=== PATIENT | male | born 1970 | race Caucasian/White ===

== ENCOUNTER 2020-06-23 19:28 | Emergency (ER) | payer MEDICARE, MEDICAID, SELFPAY ==
[2020-06-23 19:37] VITALS: BP 137/88; PULSE 115; RESP 18; TEMP 37.1; O2SAT 97; BMI 30.5
--- NOTE | 2020-06-23 20:00 | W.ED.UPPEXIN ---
HPI - Extremity Injury (Upper) General: Chief Complaint: Trauma Stated Complaint: crushed finger Time Seen by Provider: 06/23/20 19:51 Source: patient Mode of arrival: ambulatory Limitations: no limitations History of Present Illness: HPI narrative: Patient is a 50-year-old male who presents to ED today with a complaint of pain and swelling to his left index finger. Patient tells me a few days ago he was working on a car motor when the motor came down and landed onto his finger. He did not note any abrasions or lacerations or nail damage. He states following that the finger became swollen and red and warm to the touch thus prompting evaluation. He has not been running fevers. MD complaint: injury to: left and finger Onset (ago): day(s) Other injuries: none Place: home Severity: moderate Relieving factors: none Exacerbating factors: none Context: direct blow and crush Review of Systems Const: Denies: fever(s), chills or body aches Card: Denies: chest pain Resp: Denies: dyspnea GI: Denies: nausea or vomiting Musc: Reports: extremity pain (L index finger) and extremity swelling (L index finger) Skin/Breast: Reports: erythema (L index finger) Neuro: Denies: numbness in extremities or sensory changes Physical Exam Const: COMMON NORMALS: no acute distress, patient oriented x3, no limitations and alert GENERAL APPEARANCE: cooperative ORIENTATION/CONSCIOUSNESS: Yes awake, Yes oriented to person, Yes oriented to place and Yes oriented to time Resp: COMMON NORMALS: normal respiratory effort and clear to auscultation bilaterally AUSCULTATION: clear to auscultation bilaterally Cardio: COMMON NORMALS: regular rhythm RATE: tachycardic (mild) RHYTHM: regular rhythm Extremity: NARRATIVE EXTREMITY EXAM: pt has swelling to the distal 2/3 of his L index finger; the dorsum of the finger around the middle phalanx is erythematous and warm; there is no nail damage/no subungual hematoma; there is no lacerations or abrasions noted Neuro: COMMON NORMALS: patient oriented x3, moves all extremities, no focal motor deficits and no sensory deficits noted SENSORIUM/ORIENTATION: Yes alert, Yes oriented to person, Yes oriented to place and Yes oriented to time Skin: NARRATIVE SKIN EXAM: see extremity assessment Course Vital Signs: Vital signs: Vital Signs Temperature 98.1 F 06/23/20 21:41 Pulse Rate 105 H 06/23/20 21:41 Respiratory Rate 16 06/23/20 21:41 Blood Pressure 148/94 06/23/20 21:41 Pulse Oximetry 97 06/23/20 21:41 MDM - Extremity Injury (Upper) MDM Narrative: Medical decision making narrative: Patient has no bony injury. Finger does appear infected-most likely some microtrauma from the crush injury. No infectious tenosynovitis. He was given 1g IM ancef here. Will DC with pain meds and abx. Strict return to ED precautions given if this doesn't improve or worsens. Imaging Data^: XR L finger: Radiologist's impression: [address] [address]SFvu ReportSigned Patient: Ike Herrera #: [id number]: 1970Acct#:[id number]/Sex: 50 / MADM Date: 06/23/20Loc: ERRoom/Bed:Attending Dr: Ordering Provider/Ordering MD: Loren Diallo Date of Service: 06/23/20 Procedure(s): XR finger LT min 2V [id number] Accession Number(s): [id number] Report Number: [id number] PROCEDURE INFORMATION: Exam: XR Left Finger(s) Exam date and time: 06/23/2020 8:24 PM Age: 50 years old Clinical indication: Injury or trauma; Crushing; Left; Patient HX: Crush injury L index finger; Additional info: Trauma; Index TECHNIQUE: Imaging protocol: XR Left fingers. Views: Minimum 2 views. COMPARISON: No relevant prior studies available. FINDINGS: Bones/joints: Normal. Soft tissues: There is edema and/or hematoma in the soft tissues surrounding the 2nd digit. XR/XR finger LT min 2V [id number] IMPRESSION: There is edema and/or hematoma in the soft tissues surrounding the 2nd digit. Dictated By:Cathy Hercules MDSigned By:Cathy Hercules MDSigned Date/Time:06/23/20D/ 49 Discharge Plan Discharge Patient Disposition: Home Clinical Impression: Crushing injury of index finger, Cellulitis of left index finger Condition: Stable Prescriptions: New tramadol 50 mg tablet 50 mg PO Q6H PRN (Reason: pain) Qty: 14 RF: 0 cephalexin 500 mg capsule 500 mg PO Q6H 7 Days Qty: 28 RF: 0 Discharge Orders: Discharge ED (Routine); Ordered 06/23/20 Ordered By: Loren Diallo Referrals: Ned Nguyen, ACCOUNT SERVICES ANALYST-C [Primary Care Provider] - Activity Restrictions/Additional Instructions: Fill your antibiotics and begin taking them immediately. You need to return to the emergency department if finger continues over the weekend. You also need to return if finger continues to worsen past 48 hours of antibiotic use. Otherwise you may follow up with primary care. Coding Level of Care Code ED Dub Room Engineer for Piedad Gonzalez
[2020-06-23 20:28] VITALS: BP 154/103; PULSE 112; RESP 18; TEMP 37.6; O2SAT 96
--- NOTE | 2020-06-23 20:32 | PC.NURSE ---
Pt crushed left finger on night while changing brakes on a car. Left index finger is swollen, red and pt states it is throbbing and very painful. Rates pain as 10 on 1-10 scale.
[2020-06-23] MEDS: ceFAZolin 1,000 mg SDV 1000 MG IM (21:25)
[2020-06-23 21:28] VITALS: RESP 16
[2020-06-23] MEDS: morphine 4 mg/mL SDV 1 mL IM (21:28)
[2020-06-23 21:32] VITALS: BP 148/94; PULSE 102; RESP 18; TEMP 37.1; O2SAT 97
[2020-06-23 21:41] VITALS: BP 148/94; PULSE 105; RESP 16; TEMP 36.7; O2SAT 97
--- NOTE | 2020-06-23 21:57 | PC.NURSE ---
Pt states pain is improving. Now rates pain 7 on 1-10 scale. now preparing for discharge.
== END 2020-06-23 22:04 | disposition home or self-care (01) ==
PROVIDERS: Emergency Provider Physician Assistant; PCP Nurse Practitioner
DX: S67.191A Crushing injury of left index finger, initial encounter (principal); L03.012 Cellulitis of left finger; W20.8XXA Other cause of strike by thrown, projected or falling object, initial encounter
CPT/HCPCS: 73140; 96372; 99283; J0690; J2270

== ENCOUNTER → 2020-09-24 09:37 | Outpatient (BNVA) | payer MEDICARE, MEDICAID, SELFPAY | PROVIDERS: PCP Nurse Practitioner; Referring Provider Nurse Practitioner Family; Visit Provider Specialist | DX: M25.511 Pain in right shoulder (principal); M25.512 Pain in left shoulder; G89.29 Other chronic pain; Z98.890 Other specified postprocedural states | CPT/HCPCS: 73030 ==

== ENCOUNTER 2021-03-03 21:58 | Emergency (ER) | payer MEDICARE, MEDICAID, SELFPAY ==
[2021-03-03 22:07] VITALS: BP 149/93; PULSE 122; RESP 24; TEMP 37.9; O2SAT 96; BMI 30.5
--- NOTE | 2021-03-03 23:03 | ECG_ITS ---
[facility] Test Date: 2021-03-03 Pat Name: Ike Herrera Department: Room: Gender: Male Event Promotions Coordinator: : 1970 Requested By: Andres Merchant Order Number: [id number] Chandni MD: Lupe Burns M.D. Measurements Intervals [place] Rate: 118 P: 59 DC: 142 QRS: 15 QRSD: 104 T: 56 QT: 307 QTc: 430 Interpretive Statements SINUS TACHYCARDIA ABNORMAL RHYTHM ECG Compared to ECG 02/24/2017 13:59:00 Sinus rhythm no longer present Electronically Signed On 03-05-2021 5:04:55 HOSPITALITY AMBASSADOR by Lupe Burns M.D. [email or web address] county memorial [id number]
--- NOTE | 2021-03-03 23:03 | CTR_ITS ---
PROCEDURE INFORMATION: Exam: CTA Chest With Contrast Exam date and time: 03/03/2021 11:03 PM Age: 50 years old Clinical indication: Injury or trauma; Fall; Dyspnea; Blunt trauma (contusions or hematomas); Injury details: PT fell out of truck bed 3 days ago onto right side. Bruising to right side of torso SOB; Additional info: Fall chest and R flank pain, SOB TECHNIQUE: Imaging protocol: Computed tomographic angiography of the chest with contrast. 3D rendering (Not supervised by radiologist): MIP and/or 3D reconstructed images were created by the technologist. Radiation optimization: All CT scans at this facility use at least one of these dose optimization techniques: automated exposure control; mA and/or kV adjustment per patient size (includes targeted exams where dose is matched to clinical indication); or iterative reconstruction. Contrast material: OMNI 350; Contrast volume: 95 ml; Contrast route: INTRAVENOUS (IV); COMPARISON: CR Chest 1 [place] [id number] 11/14/2018 10:41 PM RADIATION DOSE METRICS: Total DLP (mGy-cm): 2987.54 FINDINGS: Pulmonary arteries: Normal. No pulmonary emboli. Aorta: Unremarkable. No aortic aneurysm. No aortic dissection. Lungs: Unremarkable. No consolidation. No masses. Pleural spaces: Unremarkable. No pneumothorax. No pleural effusion. Heart: Unremarkable. No cardiomegaly. No pericardial effusion. Lymph nodes: Unremarkable. No enlarged lymph nodes. Bones/joints: Severe cervicothoracic dextroscoliosis and thoracic levoscoliosis which may be developmental with multiple areas of rib anomalies and developmental fusions. Anterior dislocation of the right total shoulder replacement. Axial series 4, image 23. Severe lower cervical facet degenerative change. No obvious right rib fractures. Soft tissues: 5.5 x 4.5 x 2.2 cm hematoma within the right pectoralis minor muscle, axial series 4, image 149. Two smaller confluent molar posterior hematomas within the right pectoralis minor muscle. PROCEDURE INFORMATION: Exam: CT Abdomen And Pelvis With Contrast Exam date and time: 03/03/2021 11:03 PM Age: 50 years old Clinical indication: Injury or trauma; Fall; Dyspnea; Blunt trauma (contusions or hematomas); Injury details: PT fell out of truck bed 3 days ago onto right side. Bruising to right side of torso SOB; Additional info: Fall chest and R flank pain, SOB TECHNIQUE: Imaging protocol: Computed tomography of the abdomen and pelvis with contrast. Radiation optimization: All CT scans at this facility use at least one of these dose optimization techniques: automated exposure control; mA and/or kV adjustment per patient size (includes targeted exams where dose is matched to clinical indication); or iterative reconstruction. Contrast material: OMNI 350; Contrast volume: 95 ml; Contrast route: INTRAVENOUS (IV); COMPARISON: CR Chest 1 [place] [id number] 11/14/2018 10:41 PM RADIATION DOSE METRICS: Total DLP (mGy-cm): 2987.54 FINDINGS: Liver: Normal. No mass. Gallbladder and bile ducts: Normal. No calcified stones. No ductal dilation. Pancreas: Normal. No ductal dilation. Spleen: Normal. No splenomegaly. Adrenal glands: Normal. No mass. Kidneys and ureters: There is a right ureteral jet. Stomach and bowel: Unremarkable. No obstruction. No mucosal thickening. Appendix: No evidence of appendicitis. Intraperitoneal space: Unremarkable. No free air. No significant fluid collection. Vasculature: Calcification of the abdominal aorta and/or iliac arteries consistent with atherosclerotic vessel disease. Lymph nodes: Unremarkable. No enlarged lymph nodes. Urinary bladder: Unremarkable as visualized. Reproductive: Unremarkable as visualized. Bones/joints: Unremarkable. No acute fracture. Soft tissues: Unremarkable. CT/CT angio chest w abd pel w con IMPRESSION: 1. Severe cervicothoracic dextroscoliosis and thoracic levoscoliosis which may be developmental with multiple areas of rib anomalies and developmental fusions. 2. Anterior dislocation of the right total shoulder replacement. Axial series 4, image 23. 3. 5.5 x 4.5 x 2.2 cm hematoma within the right pectoralis minor muscle, axial series 4, image 149. 4. Two smaller confluent molar posterior hematomas within the right pectoralis minor muscle. 5. No obvious right rib fractures. IMPRESSION: No acute findings.
--- NOTE | 2021-03-03 23:03 | CTR_ITS ---
PROCEDURE INFORMATION: Exam: CT Cervical Spine Without Contrast Exam date and time: 03/03/2021 11:03 PM Age: 50 years old Clinical indication: Pain and injury or trauma; Fall; Blunt trauma; Neck pain; Injury date: 3 days ago; Injury details: Patient fell out of truck bed onto right side; Prior surgery; Surgery date: 6+ months; Surgery type: Right humerus; Additional info: Fall neck pain TECHNIQUE: Imaging protocol: Computed tomography images of the cervical spine without contrast. Radiation optimization: All CT scans at this facility use at least one of these dose optimization techniques: automated exposure control; mA and/or kV adjustment per patient size (includes targeted exams where dose is matched to clinical indication); or iterative reconstruction. COMPARISON: MRI Cervical Spine w/o* [id number] 05/12/2014 2:13 PM RADIATION DOSE METRICS: Total DLP (mGy-cm): 1280.25 FINDINGS: Bones/joints: Total right shoulder replacement. Severe multilevel spine degenerative changes including degenerative disc disease, spondylosis and facet degenerative changes. Levoscoliosis. Discs/Spinal canal/Neural foramina: Multilevel bilateral foraminal stenosis. Moderate to severe central spinal stenosis at C4-C5. Lungs: Lung apices are normal. Soft tissues: Dislocation/subluxation of the right total shoulder replacement noted on the scalp film. CT/CT cervical spin wo con* [id number] IMPRESSION: 1. Total right shoulder replacement noted on cold food packer film 2. Dislocation/subluxation of the right total shoulder replacement noted on the cold food packer film. 3. Moderate to severe central spinal stenosis at C4-C5. 4. No acute C-spine findings.
[2021-03-03 23:10] VITALS: O2SAT 96
[2021-03-03 23:16] VITALS: RESP 25; O2SAT 95
[2021-03-03] MEDS: morphine 4 mg/mL SDV 1 mL IVP (23:16)
[2021-03-03 23:18] LABS: Basophils % 0.1 %; Eosinophils # 0.1 10^3/uL (0.0-0.8); Eosinophils % 0.8 %; Hematocrit 33.9 % (42.0-52.0); Hemoglobin 11.1 g/dL (11.7-16.6); Lymphocytes # 2.3 10^3/uL (0.8-4.8); Lymphocytes % 28.4 %; Mean Corpuscular HGB Conc 32.7 g/dL (30.0-36.0); Mean Corpuscular Volume 85.6 fl (80-94); Mean Platelet Volume 10.3 fL (7.4-10.4); Monocytes # 0.6 10^3/uL (0.2-0.9); Monocytes % 7.7 %; Neutrophils # 4.96 10^3/uL (1.8-7.7); Neutrophils % 62.4 %; Nucleated Red Blood Cells % 0 %; Platelet Count 316 10^3/cmm (130-400); Red Blood Count 3.96 10^6/uL (4.1-5.3); Red Cell Distribution Width 14.2 % (12.1-15.1)
[2021-03-03] MEDS: ondansetron 2 mg/ML SDV 2 mL 4 MG IVP (23:23)
[2021-03-03 23:24] VITALS: PULSE 113; RESP 25; O2SAT 95
--- NOTE | 2021-03-03 23:30 | XRR_ITS ---
PROCEDURE INFORMATION: Exam: XR Right Humerus Exam date and time: 03/03/2021 11:30 PM Age: 50 years old Clinical indication: Pain; Upper arm; Right; Prior surgery; Surgery date: 6+ months; Surgery type: RT. Shoulder; Additional info: Fall arm pain TECHNIQUE: Imaging protocol: XR Right humerus. Views: 2 or more views. COMPARISON: CT angio chest w abd pel w con 03/03/2021 11:49 PM FINDINGS: Bones/joints: Anterior shoulder dislocation of the total right shoulder replacement noted on today's CT chest. Apparent continued dislocation on plain films today. Soft tissues: Normal. XR/[place] [id number] IMPRESSION: 1. Anterior shoulder dislocation of the total right shoulder replacement noted on today's CT chest. 2. Apparent continued dislocation on plain films today.
--- NOTE | 2021-03-03 23:30 | ED_ITS ---
HPI - COVID General: Chief Complaint: COVID symptoms Stated Complaint: Covid Symptoms\Injury Shoulder Pain Time Seen by Provider: 03/03/21 22:24 Triage information: Has fever, cough or shortness of breath . Exposure to COVID + person last 14 days History of Present Illness: HPI Narrative: 50-year-old male has been taking care of a family member with COVID-19. Also, 3 days ago, he was getting up into his truck, fell off of the side of the truck and landed on his right side. He complains of bruising and pain with shortness of breath to the right side of his chest wall, and arm. He has fever, increasing shortness of breath. No vomiting. He does have cough as well. He complains of neck pain after his fall as well on the right side. He did not hit his head MD complaint: reported COVID exposure and has COVID symptoms Prior covid testing: no COVID 19 common symptoms: positive fever(s), chills, cough, productive cough, dyspnea, fatigue, nasal congestion, nausea and diarrhea; negative vomiting COVID 19 other sytmptoms: positive chest pressure, chest pain and pleuritic pain; negative requiring oxygen Onset (ago): day(s) Severity: moderate Pertinent comorbid conditions: tobacco use/smoking Treatment prior to arrival: none COVID Results: SARS-CoV-2 (PCR) Not detected (NOT DETECT) 03/03/21 23:19 03/03/21 Coronavirus Type 229E (PCR) Not detected (NOT DETECT) 03/03/21 23:19 03/03/21 Review of Systems Const: Reports: fever(s), chills and fatigue ENMT: Reports: nasal congestion Card: Reports: chest pain Resp: Reports: dyspnea and productive cough GI: Reports: nausea and diarrhea; Denies: vomiting PFSH ED PFSH: Surgical History (Updated 03/04/21 @ 01:54 by Andres Burk DO) History of rotator cuff surgery right and left shoulder Family History Father Hypertension Social History Second hand smoke exposure: No Smoking risk assessment/counseling performed?: Yes Alcohol intake: never Desire information about alcohol rehabilitation?: No Counseling given: No Desire information about substance/drug rehabilitation?: No Counseling given: No Caregiver/support person: No Lives independently: Yes Household members: family Housing: House Marital status: Number of children: 3 Highest education level completed: High School Graduate service: No Current occupational status: disabled Pets and animals: No History of recent travel: No Physical Exam Const: GENERAL APPEARANCE: cooperative and ill appearing; not comfortable HENMT: COMMON NORMALS: normocephalic and atraumatic HEAD & SCALP: normocephalic and atraumatic Neck/C-Spine: GENERAL: Yes trachea midline and Yes tender (Right paraspinal musculature) Chest: CHEST: Yes localized rib tenderness with anteroposterior compression, No Sternal flail present and Yes tenderness Breast/axilla inspection: Yes skin changes Resp: COMMON NORMALS: clear to auscultation bilaterally EFFORT & INSPECTION: Yes tachypneic and Yes uses accessory muscles AUSCULTATION: clear to auscultation bilaterally Cardio: COMMON NORMALS: regular rhythm RATE: tachycardic RHYTHM: regular rhythm GI: COMMON NORMALS: Normal to inspection, nondistended, normoactive bowel sounds present and Soft to palpation PALPATION: Yes Soft to palpation Extremity: NARRATIVE EXTREMITY EXAM: Right upper extremity exam shows a shoulder that is tender to the touch. There is an anterior bulge suspicious for possible dislocation or fracture near the arthroplasty site. Skin: NARRATIVE SKIN EXAM: Significant ecchymosis to the right chest wall and flank Procedures Orthopedic Joint Reduction Joint #1: Time Out Performed: Yes Side: right Joint Reduction Location: shoulder Analgesia: procedural sedation Shoulder Technique Used (if applicable): traction/counter-traction and scapula manipulation Post-reduction neuro exam: intact Post-reduction vascular: intact Post Reduction X-Ray Obtained: Yes Post Reduction X-Ray Results: reduced Splint Applied: Yes Patient Tolerated Procedure: well and no complications Procedural Sedation Indication: fracture/dislocation reduction ASA Class: II Preparation: groundwater monitoring technician applied, pulse oximeter, supplemental O2 applied, suction/airway equipment at bedside and IV secured Fentanyl: IV Fentanyl dose (mcg): 10 Ketamine: IV Ketamine dose (mg): 150 Patient Tolerated Procedure: well and no complications Complications: none Course Vital Signs: Vital signs: Vital Signs Temperature 100.3 F H 03/03/21 22:07 Pulse Rate 101 H 03/04/21 01:16 Respiratory Rate 18 03/04/21 02:25 Blood Pressure 159/98 03/04/21 02:25 Pulse Oximetry 98 03/04/21 02:25 MDM - COVID MDM Narrative: Medical decision making narrative: 50-year-old male with multiple complaints. He complains of cough and shortness of breath. He has a temperature of 100.3 here. He has close contact with a COVID-19 positive patient. His PCR was negative here. His chest x-ray was negative for infiltrate. However, his D-dimer was 7, CTA was performed not only for this reason but because the patient had had chest trauma 3 days ago. It is negative for rib fracture. Negative for infiltrate. Negative for PE belly CT is negative as well. It does show a dislocated prosthetic right shoulder. X-ray of the humerus shows this as well. This was reduced with mild difficulty under conscious sedation. Pain is improved as far as that goes. He will follow up with an orthopedic surgeon. He remains highly suspicious for COVID-19 given his other symptoms, and was encouraged to retest. As his test is so far negative, monoclonal antibody infusion was not able to be given. Lab Data: Labs: Lab Results 03/03/21 03/03/21 03/03/21 23:04 23:04 23:04 WBC 8.0 10^3/uL 10^3/ uL (4.0-10.0) RBC 3.96 10^6/uL L 10 ^6/uL (4.1-5.3) Hgb 11.1 g/dL L g/dL (11.7-16.6) Hct 33.9 % L % (42.0-52.0) MCV 85.6 fl fl (80-94) MCH 28.0 pg pg (28.0-34.0) MCHC 32.7 g/dL g/dL (30.0-36.0) RDW 14.2 % % (12.1-15.1) Plt Count 316 10^3/cmm 10^3 /cmm (130-400) MPV 10.3 fL fL (7.4-10.4) Neut % (Auto) 62.4 % % Lymph % (Auto) 28.4 % % [place] % (Auto) 7.7 % % Eos % (Auto) 0.8 % % Baso % (Auto) 0.1 % % Neut # (Auto) 4.96 10^3/uL 10^3 /uL (1.8-7.7) Lymph # (Auto) 2.3 10^3/uL 10^3/ uL (0.8-4.8) [place] # (Auto) 0.6 10^3/uL 10^3/ uL (0.2-0.9) Eos # (Auto) 0.1 10^3/uL 10^3/ uL (0.0-0.8) Baso # (Auto) 0.0 10^3/uL 10^3/ uL (0.0-0.1) Nucleated RBC % (a uto) 0 % % Nucleated RBCs # 0.0 /100WBC /100W BC D-Dimer 7.64 ug/mIFEU H u g/mIFEU (0-0.59) Sodium 134 mmol/L L mmol /L (136-145) Potassium 4.0 mmol/L mmol/L (3.5-5.1) Chloride 98 mmol/L mmol/L (98-107) Carbon Dioxide 25 mmol/L mmol/L (22-29) Anion Gap 15.0 (5-19) BUN 7 mg/dL mg/dL (6-20) Creatinine 0.6 mg/dL L mg/dL (0.7-1.2) GFR Calculation 142.0 mL/min H mL /min (90-130) Glucose 93 mg/dL mg/dL (65-115) Calculated Osmolal ity 276 mOsm/kg L mOs m/kg (285-295) Lactic Acid Calcium 8.0 mg/dL L mg/dL (8.5-10.5) Total Bilirubin 0.3 mg/dL mg/dL (0.15-1.2) AST 36 U/L U/L (0-40) ALT 63 U/L H U/L (0-41) Alkaline Phosphata se 99 IU/L IU/L (40-130) C-Reactive Protein 84.9 mg/L H mg/L (0.0-4.9) NT-Pro-B Natriuret Pep 97 pg/mL pg/mL (0-125) Total Protein 6.8 g/dL g/dL (6.6-8.7) Albumin 3.2 g/dL L g/dL (3.5-5.2) Globulin 3.6 g/dL g/dL (1.3-4.6) Procalcitonin 0.28 ng/mL ng/mL (0-0.5) Coronavirus 229E ( PCR) SARS-CoV-2 (PCR) 03/03/21 03/03/21 23:19 23:19 WBC RBC Hgb Hct MCV MCH MCHC RDW Plt Count MPV Neut % (Auto) Lymph % (Auto) [place] % (Auto) Eos % (Auto) Baso % (Auto) Neut # (Auto) Lymph # (Auto) [place] # (Auto) Eos # (Auto) Baso # (Auto) Nucleated RBC % (a uto) Nucleated RBCs # D-Dimer Sodium Potassium Chloride Carbon Dioxide Anion Gap BUN Creatinine GFR Calculation Glucose Calculated Osmolal ity Lactic Acid 1.1 mmol/L mmol/L (0.5-2.2) Calcium Total Bilirubin AST ALT Alkaline Phosphata se C-Reactive Protein NT-Pro-B Natriuret Pep Total Protein Albumin Globulin Procalcitonin Coronavirus 229E ( PCR) Not detected (NOT DETECT) SARS-CoV-2 (PCR) Not detected (NOT DETECT) COVID Results: SARS-CoV-2 (PCR) Not detected (NOT DETECT) 03/03/21 23:19 03/03/21 Coronavirus Type 229E (PCR) Not detected (NOT DETECT) 03/03/21 23:19 03/03/21 Discharge Plan Discharge Patient Disposition: Home Clinical Impression: History of reverse total replacement of right shoulder joint Dislocation of shoulder region Qualifiers: Encounter type: initial encounter Laterality: right Qualified Code(s): S43.004A - Unspecified dislocation of right shoulder joint, initial encounter Condition: Stable Prescriptions: Continued Percocet 5-325 mg tablet 1 tab PO Q4H PRN (Reason: pain) Qty: 10 RF: 0 Discharge Orders: Discharge ED (Routine); Ordered 03/04/21 Ordered By: Andres Burk Referrals: Ned Nguyen, TUBE DRAWER-C [Primary Care Provider] - 1-3 days Patient Instructions: Shoulder Dislocation (ED), Shoulder Immobilizer (ED) Activity Restrictions/Additional Instructions: Stay in your shoulder immobilizer or a sling until seen by orthopedic surgeon. You will need to see your orthopedic surgeon this coming week. Call them for an appointment. Also, consider getting retested for COVID-19, as your presentation is suspicious though your COVID-19 PCR was negative this morning. Take a full dose aspirin a day until otherwise told. Return for any worsening symptoms such as fever, shortness of breath, worsening pain, vomiting liquids, other concerns. Coding Level of Care Code ED Distribution Collection Operator for Piedad Fwmathew Exam Detailed
[2021-03-03 23:31] LABS: D Dimer 7.64 ug/mIFEU (0-0.59)
[2021-03-03 23:38] LABS: NT Pro B Type Natriuretic Pept 97 pg/mL (0-125); Procalcitonin 0.28 ng/mL (0-0.5)
[2021-03-03 23:49] LABS: Alanine Aminotransferase 63 U/L (0-41); Albumin Level 3.2 g/dL (3.5-5.2); Alkaline Phosphatase 99 IU/L (40-130); Aspartate Amino Transferase 36 U/L (0-40); Blood Urea Nitrogen 7 mg/dL (6-20); C Reactive Protein 84.9 mg/L (0.0-4.9); Carbon Dioxide 25 mmol/L (22-29); Chloride 98 mmol/L (98-107); Globulin 3.6 g/dL (1.3-4.6); Glucose 93 mg/dL (65-115); Osmolality Calculated 276 mOsm/kg (285-295); Sodium 134 mmol/L (136-145); Total Bilirubin 0.3 mg/dL (0.15-1.2); Total Protein 6.8 g/dL (6.6-8.7)
[2021-03-03] MEDS: iohexol 350 mg/mL 100 mL Btl IV (23:50)
[2021-03-03 23:54] VITALS: PULSE 113; RESP 20
[2021-03-04 00:13] LABS: Lactic Sepsis W/Reflex 1.1 mmol/L (0.5-2.2)
[2021-03-04 00:16] VITALS: RESP 25; O2SAT 93
[2021-03-04] MEDS: morphine 4 mg/mL SDV 1 mL IVP (00:16)
--- NOTE | 2021-03-04 00:54 | XRR_ITS ---
PROCEDURE INFORMATION: Exam: XR Right Shoulder Exam date and time: 03/04/2021 12:54 AM Age: 50 years old Clinical indication: Pain; Shoulder; Right; Prior surgery; Surgery date: 6+ months; Additional info: Post reduction TECHNIQUE: Imaging protocol: XR Right shoulder. Views: 2 or more views. COMPARISON: 1. CR (UP EXM, ) 2021-03-04 00:[address] angio chest w abd pel w con 2021-03-03 23:49 3. CR Chest 1 [place] [id number] 2018-11-14 22:41 4. CR Chest 2 views* [id number] 2017-02-24 14:08 FINDINGS: Bones/joints: Shoulder arthroplasty hardware appears intact. Distal clavicle osteotomy. Soft tissues: Normal. XR/XR shoulder RT min 2V* [id number] IMPRESSION: Anatomic alignment following reduction.
[2021-03-04] MEDS: ondansetron 2 mg/ML SDV 2 mL 4 MG IVP (01:15)
[2021-03-04] MEDS: fentaNYL 50 mcg/mL INJ 2mL 100 MCG IVP (01:15)
[2021-03-04 01:16] VITALS: PULSE 101; RESP 26; O2SAT 95
--- NOTE | 2021-03-04 01:34 | PC.NURSE ---
this nurse, torrie colindres- rt and [facility] radiology were present for sedation and shoulder reduction. torrie then helped me placed a shoulder immobilizer.
[2021-03-04 01:45] LABS: Adenovirus Not Detected (NOT DETECT); Chlamydia Pneumoniae Not Detected (NOT DETECT); Coronavirus 229E,HKU1,NL63,OC4 Not Detected (NOT DETECT); Human Metapneumovirus Not Detected (NOT DETECT); Human Rhinovirus/Enterovirus Not Detected (NOT DETECT); Influenza A Not Detected (NOT DETECT); Influenza A H1 Not Detected (NOT DETECT); Influenza A H1-2009 Not Detected (NOT DETECT); Influenza A H3 Not Detected (NOT DETECT); Influenza B Not Detected (NOT DETECT); Mycoplasma Pneumoniae Not Detected (NOT DETECT); Parainfluenza Virus Type 1 Not Detected (NOT DETECT); Parainfluenza Virus Type 2 Not Detected (NOT DETECT); Parainfluenza Virus Type 3 Not Detected (NOT DETECT); Parainfluenza Virus Type 4 Not Detected (NOT DETECT); Respiratory Syncytial Virus A Not Detected (NOT DETECT); Respiratory Syncytial Virus B Not Detected (NOT DETECT); SARS-COV-2 Not Detected (NOT DETECT)
[2021-03-04 02:25] VITALS: BP 159/98; RESP 18; O2SAT 98
--- NOTE | 2021-03-04 07:20 | DCPLANNER ---
physician practice market manager had message to schedule a follow up appointment for patient with ortho. physician practice market manager emailed patients information to Yaz at ortho. Patients information will be printed and reviewed. Clinic will call patient with appointment information.
--- NOTE | 2021-03-06 06:57 | DCPLANNER ---
Addendum entered by Fabiola Andres 03/22/21 15:51: Patient had a follow up appointment scheduled for 03.06.21 with ortho - patient did not attend appointment. Original Note: Patient has a follow up appointment scheduled for Saturday, March 06, 2021 at 1:[address] Ramirez at ortho. Clinic will call patient with appointment information.
== END 2021-03-04 02:28 | disposition home or self-care (01) ==
PROVIDERS: Emergency Provider Emergency Medicine; PCP Nurse Practitioner
DX: T84.028A Dislocation of other internal joint prosthesis, initial encounter (principal); Z96.611 Presence of right artificial shoulder joint; W17.89XA Other fall from one level to another, initial encounter; Z20.822 Contact with and (suspected) exposure to COVID-19
CPT/HCPCS: 23650; 71275; 72125; 73030; 73060; 74177; 80053; 83605; 83880; 84145; 85025; 85378; 86140; 87040; 87635; 93005; 96374; 96375; 96376; 99284; J2270; J2405; J3010; J3490; Q9967

== ENCOUNTER 2021-07-31 20:00 | Emergency (ER) | payer MEDICARE, MEDICAID, SELFPAY ==
[2021-07-31 20:42] VITALS: BP 105/62; PULSE 104; RESP 18; TEMP 38.1; O2SAT 97; BMI 28.1
--- NOTE | 2021-07-31 20:59 | XRR_ITS ---
PROCEDURE INFORMATION: Exam: XR Right Shoulder Exam date and time: 07/31/2021 9:21 PM Age: 51 years old Clinical indication: Pain; Right; Prior surgery; Surgery date: 6+ months; Surgery type: RT. Shoulder; Additional info: Shoulder pain TECHNIQUE: Imaging protocol: XR Right shoulder. Views: 2 or more views. COMPARISON: CR XR shoulder RT min 2V* [id number] 03/04/2021 1:09 AM FINDINGS: Tubes, catheters and devices: There is right shoulder replacement without evidence of fracture or prosthetic loosening. Bones/joints: There is some degenerative spurring from the inferior aspect of the shoulder joint which is increased. Distal osteotomy of the right clavicle again identified. Soft tissues: Normal. XR/XR shoulder RT min 2V* [id number] IMPRESSION: Increasing degenerative changes. Otherwise stable appearance of right shoulder replacement.
--- NOTE | 2021-07-31 21:42 | CTR_ITS ---
PROCEDURE INFORMATION: Exam: CT Lumbar Spine Without Contrast Exam date and time: 07/31/2021 10:11 PM Age: 51 years old Clinical indication: Pain; [place]; Additional info: Pain at the level of l1-l2 TECHNIQUE: Imaging protocol: Computed tomography images of the lumbar spine without contrast. Radiation optimization: All CT scans at this facility use at least one of these dose optimization techniques: automated exposure control; mA and/or kV adjustment per patient size (includes targeted exams where dose is matched to clinical indication); or iterative reconstruction. COMPARISON: CT thoracic spin wo con* [id number] 07/31/2021 10:08 PM RADIATION DOSE METRICS: Total DLP (mGy-cm): 1752.48 FINDINGS: Bones/joints: There is moderate scoliosis in the upper lumbar spine concave to the left. No fracture is identified. There is narrowing of the T12-L1 disc space more on the right than on the left with sclerosis of the right sides of the adjacent endplates and prominent lateral spurring. No central canal or foraminal stenosis. L1-L2: Mild degenerative spurring anterolaterally on the right. Mild hypertrophic degenerative changes in the facet joints. No focal disc herniation identified. No significant central canal or foraminal stenosis. L2-L3: Mild decreased height of the disc space. Mild posterior bulging of the disc. Hypertrophic degenerative changes in the facet joints bilaterally. Mild foraminal narrowing on the left. L3-L4: Moderate diffuse posterior bulging of the disc slightly eccentric towards the left. Hypertrophic degenerative changes in the facet joints. No focal herniation. No significant sagittal or foraminal stenosis. L4-L5: Diffuse posterior bulging of the disc with mild subarticular protrusion on the left. Bulging disc effaces the anterior epidural space. There are hypertrophic degenerative changes in the facet joints and hypertrophy of ligamentum flavum causing mild relative stenosis. The sagittal diameter of the canal measures 10 mm. Moderate bilateral foraminal narrowing. L5-S1: Diffuse posterior bulging of the disc. Hypertrophic degenerative changes in the facet joints with medial spur formation and hypertrophy of ligamentum flavum. There is moderate central canal narrowing and bilateral foraminal stenosis. Soft tissues: Unremarkable. CT/CT lumbar spine wo con* [id number] IMPRESSION: Degenerative changes in the lumbar spine as described above. No fracture is identified.
--- NOTE | 2021-07-31 21:42 | CTR_ITS ---
PROCEDURE INFORMATION: Exam: CT Right Upper Extremity Without Contrast, Shoulder Exam date and time: 07/31/2021 10:04 PM Age: 51 years old Clinical indication: Right; Prior surgery; Surgery date: 6+ months; Surgery type: Shoulder SX 3 yrs ago. Rotato cuff; Patient HX: Shoulder SX 3 yrs ago. Pain in shoulder now. Back pain. No recent injury; Additional info: Shoulder pain and swelling, fever TECHNIQUE: Imaging protocol: CT of the Right upper extremity without contrast was performed. Exam focused on the shoulder. Radiation optimization: All CT scans at this facility use at least one of these dose optimization techniques: automated exposure control; mA and/or kV adjustment per patient size (includes targeted exams where dose is matched to clinical indication); or iterative reconstruction. COMPARISON: MRI Shoulder w/o RIGHT* [id number] 12/24/2016 9:48 AM RADIATION DOSE METRICS: Total DLP (mGy-cm): 2440.04 FINDINGS: Limitations: Streak artifact from the metallic shoulder prosthesis. Bones/joints: There is an anterior dislocation of the right shoulder replacement with external rotation. There is heterotopic bone formation arising from the inferior aspect of the glenoid is seen on the plain radiographs. No fracture is identified. Soft tissues: There is a very large fluid collection in the deltoid muscle or subdeltoid bursa. There is some peripheral calcification likely degenerative. There is no specific finding to suggest that this fluid collection is infected but infection cannot be entirely excluded on this CT scan. There is also large fluid collection measuring approximately 8 cm 4 x 12 cm inferior to the glenoid with slight peripheral calcification. This fluid collections likely related to the dislocation. There is no specific finding to suggest that this is infected but infection cannot be entirely excluded. Lymph nodes: There are numerous mildly prominent axillary and supraclavicular lymph nodes which may be reactive. CT/CT shoulder RT wo con* [id number] IMPRESSION: 1. Anterior dislocation of right shoulder replacement. 2. Degenerative changes including heterotopic bone formation. 3. Large fluid collections as described. Infection not entirely excluded but no specific finding to suggest that these are infected. 4. Supraclavicular and axillary adenopathy, possibly reactive
--- NOTE | 2021-07-31 21:42 | CTR_ITS ---
PROCEDURE INFORMATION: Exam: CT Thoracic Spine Without Contrast Exam date and time: 07/31/2021 10:08 PM Age: 51 years old Clinical indication: Pain in thoracic spine; Additional info: Bony tenderness t11-t12 TECHNIQUE: Imaging protocol: Computed tomography images of the thoracic spine without contrast. Radiation optimization: All CT scans at this facility use at least one of these dose optimization techniques: automated exposure control; mA and/or kV adjustment per patient size (includes targeted exams where dose is matched to clinical indication); or iterative reconstruction. 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 This makes precise numbering of the levels difficult. 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 There is severe S-shaped scoliosis. No fracture is identified. There are prominent anterior osteophytes at T12-L1 on the right with sclerosis of the right side of the adjacent endplates. Discs/Spinal canal/Neural foramina: There are degenerative changes in the posterior elements at multiple levels. There is no significant central canal stenosis identified. There is some foraminal narrowing on the right at T1-T2 and T3-T4 and on the left at T5-T6 where there may be an additional butterfly vertebrae on the left. Soft tissues: Unremarkable. CT/CT thoracic spin wo con* [id number] IMPRESSION: 1. 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 2. Degenerative changes as described. 3. No fracture is identified.
[2021-07-31 21:43] VITALS: BP 108/62; PULSE 102; RESP 18; TEMP 37.2; O2SAT 95
[2021-07-31] MEDS: acetaminophen 500 mg Tablet PO (21:51)
--- NOTE | 2021-07-31 22:06 | W.ED.EXTPRO ---
HPI - Extremity Problem General: Chief complaint: Extremity Injury, Upper Stated complaint: Post surgery R shoulder pain Time Seen by Provider: 07/31/21 21:21 [facility] PFSH: Surgical History (Updated 03/04/21 @ 01:54 by Andres Burk DO) History of rotator cuff surgery right and left shoulder Family History Father Hypertension Social History Second hand smoke exposure: No Smoking risk assessment/counseling performed?: Yes Alcohol intake: never Desire information about alcohol rehabilitation?: No Counseling given: No Desire information about substance/drug rehabilitation?: No Counseling given: No Caregiver/support person: No Lives independently: Yes Household members: family Housing: House Marital status: Number of children: 3 Highest education level completed: High School Graduate service: No Current occupational status: disabled Pets and animals: No History of recent travel: No Course Vital Signs: Vital signs: Vital Signs Temperature 98.9 F 07/31/21 21:43 Pulse Rate 102 H 07/31/21 21:43 Respiratory Rate 18 07/31/21 21:43 Blood Pressure 108/62 07/31/21 21:43 Pulse Oximetry 95 07/31/21 21:43 Discharge Plan Discharge Condition: Stable Prescriptions: No Action Percocet 5-325 mg tablet 1 tab PO Q4H PRN (Reason: pain) Qty: 10 0RF Referrals: Ned Nguyen FNP-C [Primary Care Provider] - Coding Level of Care Code ED 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
--- NOTE | 2021-07-31 22:07 | W.ED.GENADLT ---
Documented by User: Tien Hernandez MD 08/06/21 20:39 HPI - General Adult General: Chief complaint: Extremity Injury, Upper Stated complaint: Post surgery R shoulder pain Time Seen by Provider: 07/31/21 21:21 History of Present Illness: Patient is a 51-year-old male with history of prior right-sided shoulder surgery 3 years ago presenting to the emergency room for concerns of right-sided shoulder swelling and pain. Patient tells me that for the last 4 days he has noticed that his right shoulder has significantly swollen and is now painful. Patient at baseline is able to range 30 degrees with the shoulder. However in the last 4 days due to the swelling, patient has had decreased range of motion. Patient denies any fever or chills. Denies any history of IV drug use, transplant, diabetes or HIV. Patient tells me that the shoulder was operated on previously by an orthopedic surgeon who is on longer present. Patient also reports midline thoracic and lumbar area tenderness. Patient denies any weakness in the legs, saddle anesthesia, bladder or bowel problem. Patient denies any recent trauma or reactivation of injuries. Onset: 4 days ago (acute on chronic) Duration:4 days Location:home Severity:moderate Associated symptoms: Deny chest pain, dyspnea, nausea, rash, palpitations or vomiting Review of Systems Const: Denies: fever(s) or chills Eyes: Denies: change in vision ENMT: Denies: mouth pain Card: Denies: chest pain or palpitations Resp: Denies: dyspnea or non-productive cough GI: Denies: abdominal pain, nausea, vomiting or diarrhea : Denies: dysuria Musc: Reports: back pain (+middle back pain), extremity pain (+R shoulder pain and swelling) and other (+R shoulder swelling and pain x 4 days) Skin/Breast: Denies: rash or new lesions Neuro: Denies: weakness in extremities Psych: Reports: other (Normal mood) Nael/Lymph: Denies: easy bruising [facility] ED PFSH: Medical History (Updated 08/09/21 @ 00:01 by ) Shoulder pain Surgical History History of rotator cuff surgery right and left shoulder Family History Father Hypertension Social History Second hand smoke exposure: No Smoking risk assessment/counseling performed?: Yes Alcohol intake: never Desire information about alcohol rehabilitation?: No Counseling given: No Desire information about substance/drug rehabilitation?: No Counseling given: No Caregiver/support person: No Lives independently: Yes Household members: family Housing: House Marital status: Number of children: 3 Highest education level completed: High School Graduate service: No Current occupational status: disabled Pets and animals: No History of recent travel: No Physical Exam Const: COMMON NORMALS: alert HENMT: COMMON NORMALS: atraumatic HEAD & SCALP: atraumatic MOUTH: moist mucous membranes not abnormal Eye: COMMON NORMALS: EOMs intact bilaterally and conjunctivae normal CONJUNCTIVA: Yes conjunctivae normal Neck/C-Spine: COMMON NORMALS: full ROM and supple Resp: COMMON NORMALS: normal respiratory effort and clear to auscultation bilaterally AUSCULTATION: clear to auscultation bilaterally Cardio: COMMON NORMALS: regular rate RATE: regular rate GI: COMMON NORMALS: Soft to palpation and non-tender PALPATION: Yes Soft to palpation Back/Pelvis: OTHER: + Midline T11-T12 L1 midline bony tenderness to palpation, no step-off, +paraspinal thoracic and lumbar area tenderness to palpation Extremity: NARRATIVE EXTREMITY EXAM: + Right shoulder swelling and tenderness palpation with warmth and erythema, significant decreased range of motion of the right shoulder due to pain No other focal arm tenderness to palpation, 2+ radial pulses on the affected extremity, neurovascular exam intact on the right upper extremity Neuro: SENSORIUM/ORIENTATION: Yes alert MOTOR EXAM: No Abnormal motor strength present and Other motor observations present (no focal motor deficits) Psych: COMMON NORMALS: speech normal SPEECH: Yes normal speech MOOD & AFFECT: Yes euthymic mood Course Vital Signs: Vital signs: Vital Signs Temperature 98.6 F 08/01/21 01:21 Pulse Rate 105 H 08/01/21 01:21 Respiratory Rate 18 08/01/21 01:21 Blood Pressure 116/70 08/01/21 01:21 Pulse Oximetry 90 08/01/21 01:21 [facility] - General Adult Medical Decision Making 51-year-old male with history of 3 of right shoulder prosthetics presenting to the emergency room with acute on chronic worsening pain and swelling x4 days. Initially in triage, patient is noted to be febrile to 100.6 degrees. However on reassessment without any intervention, patient is noted to have a temperature of 98.6 in the emergency room. Because of 1 episode of fever, decision was made to obtain basic blood work to evaluate for the possibility of septic joint. X-rays show did not show any signs of dislocation. Of the right shoulder showed anterior dislocation with this collection. 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 Since patient had a fever, there is CRP/ESR elevation, warm shoulder with collection on CT scan --- this is suggestive of possible septic shoulder joint. Discussed case with Dr. Ramirez who recommended transfer to outside hospital for relocation and surgical debridement/washout of hardware. Upon discussing the need for transfer with patient, patient initially tells me that he would like to stay in the hospital and get transferred to an outside facility. However shortly after, patient changed his mind and elects to go home. At 11:37pm Patient electing to leave AMA. Patient counseled regarding risks of leaving including severe morbidity, brain , septic shock, permanent shoulder immobility or any other unwanted consequences of leaving against medical advice today. Patient verbalizes understanding of the risks and still wishes to leave AMA. Signed AMA paperwork. Patient advised that patient is welcome to return at any time. Was instructed that patient may come back if symptoms continue to persist and that emergent adverse conditions have not fully been ruled out. Patient is A&Ox3 and has capacity and is of sound mind to make decisions. I have discussed with patient that in order for us to safely discharge him, that he will be started on doxycycline and cefdinir. In addition, patient will receive vancomycin and ceftriaxone in the emergency room prior to discharge. Rx doxycycline and cefdinir for possible septic joint Disposition: AMA Lab Data : 07/31/21 22:00 07/31/21 22:00 Radiology Impressions Shoulder X-Ray 07/31/21 20:59 IMPRESSION: Increasing degenerative changes. Otherwise stable appearance of right shoulder replacement. ADDENDUM: 07/31/211 Addendum: The subsequent CT scan shows that there is actually anterior dislocation of the right shoulder. Lumbar Spine CT 07/31/21 21:42 IMPRESSION: Degenerative changes in the lumbar spine as described above. No fracture is identified. Shoulder CT 07/31/21 21:42 IMPRESSION: 1. Anterior dislocation of right shoulder replacement. 2. Degenerative changes including heterotopic bone formation. 3. Large fluid collections as described. Infection not entirely excluded but no specific finding to suggest that these are infected. 4. Supraclavicular and axillary adenopathy, possibly reactive Thoracic Spine CT 07/31/21 21:42 IMPRESSION: 1. 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 2. Degenerative changes as described. 3. No fracture is identified. Laboratory Results WBC 7.2 10^3/uL (4.0-10.0) 07/31/21 22:00 RBC 4.62 10^6/uL (4.1-5.3) 07/31/21 22:00 Hgb 12.6 g/dL (11.7-16.6) 07/31/21 22:00 Hct 38.9 % (42.0-52.0) L 07/31/21 22:00 MCV 84.2 fl (80-94) 07/31/21 22:00 MCH 27.3 pg (28.0-34.0) L 07/31/21 22:00 MCHC 32.4 g/dL (30.0-36.0) 07/31/21 22:00 RDW 15.2 % (12.1-15.1) H 07/31/21 22:00 Plt Count 281 10^3/cmm (130-400) 07/31/21 22:00 MPV 9.4 fL (7.4-10.4) 07/31/21 22:00 Neut % (Auto) 71.3 % 07/31/21 22:00 Lymph % (Auto) 17.2 % 07/31/21 22:00 [place] % (Auto) 8.0 % 07/31/21 22:00 Eos % (Auto) 2.4 % 07/31/21 22:00 Baso % (Auto) 0.3 % 07/31/21 22:00 Neut # (Auto) 5.15 10^3/uL (1.8-7.7) 07/31/21 22:00 Lymph # (Auto) 1.2 10^3/uL (0.8-4.8) 07/31/21 22:00 [place] # (Auto) 0.6 10^3/uL (0.2-0.9) 07/31/21 22:00 Eos # (Auto) 0.2 10^3/uL (0.0-0.8) 07/31/21 22:00 Baso # (Auto) 0.0 10^3/uL (0.0-0.1) 07/31/21 22:00 Nucleated RBC % (auto) 0 % 07/31/21 22:00 Nucleated RBCs # 0.0 /100WBC 07/31/21 22:00 ESR 66 mm/hr (0-10) H 07/31/21 22:00 Sodium 131 mmol/L (136-145) L 07/31/21 22:00 Potassium 4.7 mmol/L (3.5-5.1) 07/31/21 22:00 Chloride 92 mmol/L (98-107) L 07/31/21 22:00 Carbon Dioxide 29 mmol/L (22-29) 07/31/21 22:00 Anion Gap 14.7 (5-19) 07/31/21 22:00 BUN 19 mg/dL (6-20) 07/31/21 22:00 Creatinine 0.8 mg/dL (0.7-1.2) 07/31/21 22:00 GFR Calculation 101.5 mL/min (90-130) 07/31/21 22:00 Glucose 92 mg/dL (65-115) 07/31/21 22:00 Calculated Osmolality 274 mOsm/kg (285-295) L 07/31/21 22:00 Lactate 1.1 mmol/L (0.5-2.2) 07/31/21 22:19 Calcium 9.0 mg/dL (8.5-10.5) 07/31/21 22:00 C-Reactive Protein 99.1 mg/L (0.0-4.9) H 07/31/21 22:00 Imaging Data Other Imaging: Radiologist's impression: [address] [address] [address] Scan Report Signed Patient: Ike Herrera Unit #: [id number] : 1970 Age/Sex: 51 / M ADM Date: 07/31/21 Loc: ER Room/Bed: Attending Dr: Ordering Provider/Ordering MD: Tien Hernandez MD Date of Service: 07/31/21 Procedure(s): CT thoracic spin wo con* [id number] Accession Number(s): [id number] Report Number: [id number] PROCEDURE INFORMATION: Exam: CT Thoracic Spine Without Contrast Exam date and time: 07/31/2021 10:08 PM Age: 51 years old Clinical indication: Pain in thoracic spine; Additional info: Bony tenderness t11-t12 TECHNIQUE: Imaging protocol: Computed tomography images of the thoracic spine without contrast. Radiation optimization: All CT scans at this facility use at least one of these dose optimization techniques: automated exposure control; mA and/or kV adjustment per patient size (includes targeted exams where dose is matched to clinical indication); or iterative reconstruction. 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 This makes precise numbering of the levels difficult. 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 There is severe S-shaped scoliosis. No fracture is identified. There are prominent anterior osteophytes at T12-L1 on the right with sclerosis of the right side of the adjacent endplates. Discs/Spinal canal/Neural foramina: There are degenerative changes in the posterior elements at multiple levels. There is no significant central canal stenosis identified. There is some foraminal narrowing on the right at T1-T2 and T3-T4 and on the left at T5-T6 where there may be an additional butterfly vertebrae on the left. Soft tissues: Unremarkable. CT/CT thoracic spin wo con* [id number] IMPRESSION: 1. 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 2. Degenerative changes as described. 3. No fracture is identified. ? Dictated By: Yohannes Avendano Signed By: Yohannes Avendano Signed Date/Time: 07/31/219 DD/ [address] [address] [address] Scan Report Signed Patient: Ike Herrera Unit #: [id number] : 1970 [facility]#:[id number] Age/Sex: 51 / M ADM Date: 07/31/21 Loc: ER Room/Bed: Attending Dr: Ordering Provider/Ordering MD: Tien Hernandez MD Date of Service: 07/31/21 Procedure(s): CT shoulder RT wo con* [id number] Accession Number(s): [id number] Report Number: [id number] PROCEDURE INFORMATION: Exam: CT Right Upper Extremity Without Contrast, Shoulder Exam date and time: 07/31/2021 10:04 PM Age: 51 years old Clinical indication: Right; Prior surgery; Surgery date: 6+ months; Surgery type: Shoulder SX 3 yrs ago. Rotato cuff; Patient HX: Shoulder SX 3 yrs ago. Pain in shoulder now. Back pain. No recent injury; Additional info: Shoulder pain and swelling, fever TECHNIQUE: Imaging protocol: CT of the Right upper extremity without contrast was performed. Exam focused on the shoulder. Radiation optimization: All CT scans at this facility use at least one of these dose optimization techniques: automated exposure control; mA and/or kV adjustment per patient size (includes targeted exams where dose is matched to clinical indication); or iterative reconstruction. COMPARISON: MRI Shoulder w/o RIGHT* [id number] 12/24/2016 9:48 AM RADIATION DOSE METRICS: Total DLP (mGy-cm): 2440.04 FINDINGS: Limitations: Streak artifact from the metallic shoulder prosthesis. Bones/joints: There is an anterior dislocation of the right shoulder replacement with external rotation. There is heterotopic bone formation arising from the inferior aspect of the glenoid is seen on the plain radiographs. No fracture is identified. Soft tissues: There is a very large fluid collection in the deltoid muscle or subdeltoid bursa. There is some peripheral calcification likely degenerative. There is no specific finding to suggest that this fluid collection is infected but infection cannot be entirely excluded on this CT scan. There is also large fluid collection measuring approximately 8 cm 4 x 12 cm inferior to the glenoid with slight peripheral calcification. This fluid collections likely related to the dislocation. There is no specific finding to suggest that this is infected but infection cannot be entirely excluded. Lymph nodes: There are numerous mildly prominent axillary and supraclavicular lymph nodes which may be reactive. CT/CT shoulder RT wo con* [id number] IMPRESSION: 1. Anterior dislocation of right shoulder replacement. 2. Degenerative changes including heterotopic bone formation. 3. Large fluid collections as described. Infection not entirely excluded but no specific finding to suggest that these are infected. 4. Supraclavicular and axillary adenopathy, possibly reactive ? Dictated By: Yohannes Avendano Signed By: Yohannes Avendano Signed Date/Time: 07/31/212238 DD/ [address] [address] [address] Scan Report Signed Patient: Ike Herrera Unit #: [id number] : 1970 Age/Sex: 51 / M ADM Date: 07/31/21 Loc: ER Room/Bed: Attending Dr: Ordering Provider/Ordering MD: Tien Hernandez MD Date of Service: 07/31/21 Procedure(s): CT lumbar spine wo con* [id number] Accession Number(s): [id number] Report Number: [id number] PROCEDURE INFORMATION: Exam: CT Lumbar Spine Without Contrast Exam date and time: 07/31/2021 10:11 PM Age: 51 years old Clinical indication: Pain; [place]; Additional info: Pain at the level of l1-l2 TECHNIQUE: Imaging protocol: Computed tomography images of the lumbar spine without contrast. Radiation optimization: All CT scans at this facility use at least one of these dose optimization techniques: automated exposure control; mA and/or kV adjustment per patient size (includes targeted exams where dose is matched to clinical indication); or iterative reconstruction. COMPARISON: CT thoracic spin wo con* [id number] 07/31/2021 10:08 PM RADIATION DOSE METRICS: Total DLP (mGy-cm): 1752.48 FINDINGS: Bones/joints: There is moderate scoliosis in the upper lumbar spine concave to the left. No fracture is identified. There is narrowing of the T12-L1 disc space more on the right than on the left with sclerosis of the right sides of the adjacent endplates and prominent lateral spurring. No central canal or foraminal stenosis. L1-L2: Mild degenerative spurring anterolaterally on the right. Mild hypertrophic degenerative changes in the facet joints. No focal disc herniation identified. No significant central canal or foraminal stenosis. L2-L3: Mild decreased height of the disc space. Mild posterior bulging of the disc. Hypertrophic degenerative changes in the facet joints bilaterally. Mild foraminal narrowing on the left. L3-L4: Moderate diffuse posterior bulging of the disc slightly eccentric towards the left. Hypertrophic degenerative changes in the facet joints. No focal herniation. No significant sagittal or foraminal stenosis. L4-L5: Diffuse posterior bulging of the disc with mild subarticular protrusion on the left. Bulging disc effaces the anterior epidural space. There are hypertrophic degenerative changes in the facet joints and hypertrophy of ligamentum flavum causing mild relative stenosis. The sagittal diameter of the canal measures 10 mm. Moderate bilateral foraminal narrowing. L5-S1: Diffuse posterior bulging of the disc. Hypertrophic degenerative changes in the facet joints with medial spur formation and hypertrophy of ligamentum flavum. There is moderate central canal narrowing and bilateral foraminal stenosis. Soft tissues: Unremarkable. CT/CT lumbar spine wo con* [id number] IMPRESSION: Degenerative changes in the lumbar spine as described above. No fracture is identified. ? Dictated By: Yohannes Avendano Signed By: Yohannes Avendano Signed Date/Time: 07/31/21 2250 DD/ [address] [address] XRay Report Signed with Mickey Patient: Ike Herrera Unit #: [id number] : 1970 Age/Sex: 51 / M ADM Date: 07/31/21 Loc: ER Room/Bed: Attending Dr: Ordering Provider/Ordering MD: Tien Hernandez MD Date of Service: 07/31/21 Procedure(s): XR shoulder RT min 2V* [id number] Accession Number(s): [id number] Report Number: [id number] ADDENDUM XR/XR shoulder RT min 2V* [id number] Addendum:? The subsequent CT scan shows that there is actually anterior dislocation of the right shoulder. ? Addendum Dictated By: ?Yohannes Avendano Addendum Signed By: ?Yohannes Avendano Signed Date/Time: 07/31/212220 Addendum Cosigned By: ? PROCEDURE INFORMATION: Exam: XR Right Shoulder Exam date and time: 07/31/2021 9:21 PM Age: 51 years old Clinical indication: Pain; Right; Prior surgery; Surgery date: 6+ months; Surgery type: RT. Shoulder; Additional info: Shoulder pain TECHNIQUE: Imaging protocol: XR Right shoulder. Views: 2 or more views. COMPARISON: CR XR shoulder RT min 2V* [id number] 03/04/2021 1:09 AM FINDINGS: Tubes, catheters and devices: There is right shoulder replacement without evidence of fracture or prosthetic loosening. Bones/joints: There is some degenerative spurring from the inferior aspect of the shoulder joint which is increased. Distal osteotomy of the right clavicle again identified. Soft tissues: Normal. XR/XR shoulder RT min 2V* [id number] IMPRESSION: Increasing degenerative changes. Otherwise stable appearance of right shoulder replacement. ? Dictated By: Yohannes Avendano Signed By: Yohannes Avendano Signed Date/Time: 07/31/212207 DD/ 20 Discharge Plan Discharge Patient Disposition: Left Against Medical Advice Clinical Impression: Acute shoulder pain, Back pain, Fever Condition: Stable Prescriptions: No Action Percocet 5-325 mg tablet 1 tab PO Q4H PRN (Reason: pain) Qty: 10 0RF Referrals: Ned Nguyen, SANITATION MANAGER-C [Primary Care Provider] - Coding Level of Care Code ED Endocrinology Physician for Chg Fwd Exam Comprehensive Documented by User: Augie Garcia MD 08/12/21 02:09 HPI - General Adult General: Chief complaint: Extremity Injury, Upper Stated complaint: Post surgery R shoulder pain Time Seen by Provider: 07/31/21 21:21 PFSH ED PFSH: Medical History (Updated 08/09/21 @ 00:01 by ) Shoulder pain Surgical History History of rotator cuff surgery right and left shoulder Family History Father Hypertension Social History Second hand smoke exposure: No Smoking risk assessment/counseling performed?: Yes Alcohol intake: never Desire information about alcohol rehabilitation?: No Counseling given: No Desire information about substance/drug rehabilitation?: No Counseling given: No Caregiver/support person: No Lives independently: Yes Household members: family Housing: House Marital status: Number of children: 3 Highest education level completed: High School Graduate service: No Current occupational status: disabled Pets and animals: No History of recent travel: No Course Vital Signs: Vital signs: Vital Signs Temperature 98.6 F 08/01/21 01:21 Pulse Rate 105 H 08/01/21 01:21 Respiratory Rate 18 08/01/21 01:21 Blood Pressure 116/70 08/01/21 01:21 Pulse Oximetry 90 08/01/21 01:21 [facility] - General Adult Medical Decision Making 51-year-old male with history of 3 of right shoulder prosthetics presenting to the emergency room with acute on chronic worsening pain and swelling x4 days. Initially in triage, patient is noted to be febrile to 100.6 degrees. However on reassessment without any intervention, patient is noted to have a temperature of 98.6 in the emergency room. Because of 1 episode of fever, decision was made to obtain basic blood work to evaluate for the possibility of septic joint. X-rays show did not show any signs of dislocation. Of the right shoulder showed anterior dislocation with this collection. 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 Since patient had a fever, there is CRP/ESR elevation, warm shoulder with collection on CT scan --- this is suggestive of possible septic shoulder joint. Discussed case with Dr. Ramirez who recommended transfer to outside hospital for relocation and surgical debridement/washout of hardware. Upon discussing the need for transfer with patient, patient initially tells me that he would like to stay in the hospital and get transferred to an outside facility. However shortly after, patient changed his mind and elects to go home. At 11:37pm Patient electing to leave AMA. Patient counseled regarding risks of leaving including severe morbidity, brain , septic shock, permanent shoulder immobility or any other unwanted consequences of leaving against medical advice today. Patient verbalizes understanding of the risks and still wishes to leave AMA. Signed AMA paperwork. Patient advised that patient is welcome to return at any time. Was instructed that patient may come back if symptoms continue to persist and that emergent adverse conditions have not fully been ruled out. Patient is A&Ox3 and has capacity and is of sound mind to make decisions. I have discussed with patient that in order for us to safely discharge him, that he will be started on doxycycline and cefdinir. In addition, patient will receive vancomycin and ceftriaxone in the emergency room prior to discharge. Rx doxycycline and cefdinir for possible septic joint Disposition: AMA Initial plan for handoff from Dr. Hernandez pending disposition however patient after discussion with Dr. Hernandez and he decided to leave AGAINST MEDICAL ADVICE. I did not see or evaluate the patient. Augie Garcia MD Emergency Medicine Lab Data : 07/31/21 22:00 07/31/21 22:00 Radiology Impressions Shoulder X-Ray 07/31/21 20:59 IMPRESSION: Increasing degenerative changes. Otherwise stable appearance of right shoulder replacement. ADDENDUM: 07/31/21 2221 Addendum: The subsequent CT scan shows that there is actually anterior dislocation of the right shoulder. Lumbar Spine CT 07/31/21 21:42 IMPRESSION: Degenerative changes in the lumbar spine as described above. No fracture is identified. Shoulder CT 07/31/21 21:42 IMPRESSION: 1. Anterior dislocation of right shoulder replacement. 2. Degenerative changes including heterotopic bone formation. 3. Large fluid collections as described. Infection not entirely excluded but no specific finding to suggest that these are infected. 4. Supraclavicular and axillary adenopathy, possibly reactive Thoracic Spine CT 07/31/21 21:42 IMPRESSION: 1. 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 2. Degenerative changes as described. 3. No fracture is identified. Laboratory Results WBC 7.2 10^3/uL (4.0-10.0) 07/31/21 22:00 RBC 4.62 10^6/uL (4.1-5.3) 07/31/21 22:00 Hgb 12.6 g/dL (11.7-16.6) 07/31/21 22:00 Hct 38.9 % (42.0-52.0) L 07/31/21 22:00 MCV 84.2 fl (80-94) 07/31/21 22:00 MCH 27.3 pg (28.0-34.0) L 07/31/21 22:00 MCHC 32.4 g/dL (30.0-36.0) 07/31/21 22:00 RDW 15.2 % (12.1-15.1) H 07/31/21 22:00 Plt Count 281 10^3/cmm (130-400) 07/31/21 22:00 MPV 9.4 fL (7.4-10.4) 07/31/21 22:00 Neut % (Auto) 71.3 % 07/31/21 22:00 Lymph % (Auto) 17.2 % 07/31/21 22:00 [place] % (Auto) 8.0 % 07/31/21 22:00 Eos % (Auto) 2.4 % 07/31/21 22:00 Baso % (Auto) 0.3 % 07/31/21 22:00 Neut # (Auto) 5.15 10^3/uL (1.8-7.7) 07/31/21 22:00 Lymph # (Auto) 1.2 10^3/uL (0.8-4.8) 07/31/21 22:00 [place] # (Auto) 0.6 10^3/uL (0.2-0.9) 07/31/21 22:00 Eos # (Auto) 0.2 10^3/uL (0.0-0.8) 07/31/21 22:00 Baso # (Auto) 0.0 10^3/uL (0.0-0.1) 07/31/21 22:00 Nucleated RBC % (auto) 0 % 07/31/21 22:00 Nucleated RBCs # 0.0 /100WBC 07/31/21 22:00 ESR 66 mm/hr (0-10) H 07/31/21 22:00 Sodium 131 mmol/L (136-145) L 07/31/21 22:00 Potassium 4.7 mmol/L (3.5-5.1) 07/31/21 22:00 Chloride 92 mmol/L (98-107) L 07/31/21 22:00 Carbon Dioxide 29 mmol/L (22-29) 07/31/21 22:00 Anion Gap 14.7 (5-19) 07/31/21 22:00 BUN 19 mg/dL (6-20) 07/31/21 22:00 Creatinine 0.8 mg/dL (0.7-1.2) 07/31/21 22:00 GFR Calculation 101.5 mL/min (90-130) 07/31/21 22:00 Glucose 92 mg/dL (65-115) 07/31/21 22:00 Calculated Osmolality 274 mOsm/kg (285-295) L 07/31/21 22:00 Lactate 1.1 mmol/L (0.5-2.2) 07/31/21 22:19 Calcium 9.0 mg/dL (8.5-10.5) 07/31/21 22:00 C-Reactive Protein 99.1 mg/L (0.0-4.9) H 07/31/21 22:00 Discharge Plan Discharge Patient Disposition: Left Against Medical Advice Clinical Impression: Acute shoulder pain, Back pain, Fever Condition: Stable Prescriptions: No Action Percocet 5-325 mg tablet 1 tab PO Q4H PRN (Reason: pain) Qty: 10 0RF Referrals: Ned Nguyen FNP-C [Primary Care Provider] - Coding Level of Care Code ED Endocrinology Physician for Chg Fwd Exam Comprehensive
[2021-07-31 22:14] LABS: Basophils % 0.3 %; Eosinophils # 0.2 10^3/uL (0.0-0.8); Eosinophils % 2.4 %; Hematocrit 38.9 % (42.0-52.0); Hemoglobin 12.6 g/dL (11.7-16.6); Lymphocytes # 1.2 10^3/uL (0.8-4.8); Lymphocytes % 17.2 %; Mean Corpuscular HGB Conc 32.4 g/dL (30.0-36.0); Mean Corpuscular Hemoglobin 27.3 pg (28.0-34.0); Mean Corpuscular Volume 84.2 fl (80-94); Mean Platelet Volume 9.4 fL (7.4-10.4); Monocytes # 0.6 10^3/uL (0.2-0.9); Neutrophils # 5.15 10^3/uL (1.8-7.7); Neutrophils % 71.3 %; Nucleated Red Blood Cells % 0 %; Platelet Count 281 10^3/cmm (130-400); Red Blood Count 4.62 10^6/uL (4.1-5.3); Red Cell Distribution Width 15.2 % (12.1-15.1); White Blood Count 7.2 10^3/uL (4.0-10.0)
[2021-07-31 22:32] LABS: Anion Gap 14.7 (5-19); Blood Urea Nitrogen 19 mg/dL (6-20); C Reactive Protein 99.1 mg/L (0.0-4.9); Carbon Dioxide 29 mmol/L (22-29); Chloride 92 mmol/L (98-107); Creatinine Clr Calc Pharmacy 110.4871; Glomerular Filtration Rate 101.5 mL/min (90-130); Glucose 92 mg/dL (65-115); Osmolality Calculated 274 mOsm/kg (285-295); Potassium 4.7 mmol/L (3.5-5.1); Sodium 131 mmol/L (136-145)
[2021-07-31 22:37] LABS: Erythrocyte Sedimentation Rate 66 mm/hr (0-10)
[2021-07-31 22:38] VITALS: RESP 18; O2SAT 98
[2021-07-31] MEDS: morphine 4 mg/mL SDV 1 mL IVP (22:38)
[2021-07-31] MEDS: sodium chloride 0.9% 1,000 ML 999 ML IV (22:40)
[2021-07-31 22:42] VITALS: BP 111/64; PULSE 101; RESP 18; TEMP 37; O2SAT 98
[2021-07-31 22:45] LABS: Lactate (Lactic Acid level) 1.1 mmol/L (0.5-2.2)
[2021-07-31] MEDS: cefTRIAXone 1,000 MG in sodium chloride 0.9% (plus) 50 ML 100 MG IV (23:44)
[2021-07-31] MEDS: vancomycin 1,000 MG in sodium chloride 0.9% 250 ML 250 MG IV (23:59)
[2021-08-01 00:08] VITALS: BP 116/70; PULSE 105; RESP 18; O2SAT 90
--- NOTE | 2021-08-01 01:09 | PC.NURSE ---
@ 1884- PT Demanding to leave. He does not want to be admitted to the hospital. He feels that he needs to go home and get things straight before he can be hospitalized in [place]. Dr. Hernandez spoke with the patient regarding his current health. Pt verbalized understanding that he has an infection in his shoulder and it will put his life at risk to leave the hospital at this time. He did agree to receive abx prior to walking out. Iv Vancomycin and Rocephin given. IV flushed and removed. Asked pt if he would consider staying once more with spouse in the room. Pt again declined. Verbalized understanding to fill written rx for abx and go to [facility]. Return here if s/s worsen or he can not make it to [place].
[2021-08-01 01:21] VITALS: BP 116/70; PULSE 105; RESP 18; TEMP 37; O2SAT 90
== END 2021-08-01 01:25 | disposition left against medical advice (07) ==
PROVIDERS: Emergency Provider Emergency Medicine; PCP Nurse Practitioner
DX: M25.511 Pain in right shoulder (principal); M54.50 Low back pain, unspecified; M54.6 Pain in thoracic spine; R50.9 Fever, unspecified; Z53.29 Procedure and treatment not carried out because of patient's decision for other reasons; Z98.890 Other specified postprocedural states
CPT/HCPCS: 72128; 72131; 73030; 73200; 80048; 83605; 85025; 85651; 86140; 87040; 96365; 96367; 96375; 99284; J0696; J2270; J3370; J7030; J7050

== ENCOUNTER 2022-02-14 05:41 | Emergency (ER) | payer MEDICARE, MEDICAID, SELFPAY ==
[2022-02-14 05:41] VITALS: BP 152/95; PULSE 111; RESP 16; TEMP 37.1; O2SAT 94; BMI 30.5
--- NOTE | 2022-02-14 05:51 | ECG_ITS ---
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 Measurements Intervals [place] Rate: 110 P: 61 MA: 154 QRS: 58 QRSD: 134 T: 16 QT: 356 QTc: 483 Interpretive Statements SINUS TACHYCARDIA INTRAVENTRICULAR CONDUCTION DELAY [130+ ms QRS DURATION] POSSIBLE LATERAL MYOCARDIAL INFARCTION , OF INDETERMINATE AGE [30 ms Q WAVE IN I/aVL/V5/V6] POSSIBLE INFERIOR MYOCARDIAL INFARCTION , PROBABLY OLD [30 ms Q WAVE IN II/aVF] Compared to ECG 03/03/2021 23:14:48 Intraventricular conduction delay now present Myocardial infarct finding now present Electronically Signed On 02-14-2022 15:39:34 HUMAN RESOURCES DESIGNATE by Lorie Elaine M.D. [email or web address]/store/[id number] f
[2022-02-14] MEDS: sodium chloride 0.9% 1,000 ML 999 ML IV (05:55)
[2022-02-14] MEDS: nicotine 21 mg Patch 1 PATCH TRANSDERMA (05:56)
[2022-02-14 05:59] LABS: Basophils % 0.3 %; Eosinophils # 0.1 10^3/uL (0.0-0.8); Hematocrit 40.3 % (42.0-52.0); Hemoglobin 12.4 g/dL (11.7-16.6); Lymphocytes # 1.2 10^3/uL (0.8-4.8); Lymphocytes % 12.6 %; Mean Corpuscular HGB Conc 30.8 g/dL (30.0-36.0); Mean Corpuscular Hemoglobin 27.4 pg (28.0-34.0); Mean Corpuscular Volume 89.2 fl (80-94); Mean Platelet Volume 9.7 fL (7.4-10.4); Monocytes # 0.5 10^3/uL (0.2-0.9); Monocytes % 4.6 %; Neutrophils # 7.86 10^3/uL (1.8-7.7); Neutrophils % 80.6 %; Nucleated Red Blood Cells % 0 %; Platelet Count 286 10^3/cmm (130-400); Red Blood Count 4.52 10^6/uL (4.1-5.3); Red Cell Distribution Width 14.7 % (12.1-15.1); White Blood Count 9.8 10^3/uL (4.0-10.0)
--- NOTE | 2022-02-14 06:00 | W.ED.OVERDOS ---
HPI - Overdose General: Chief Complaint: Overdose Stated Complaint: overdose Time Seen by Provider: 02/14/22 05:50 Source: patient Mode of arrival: ambulatory History of Present Illness: 51-year-old male presents to the emergency room after an accidental overdose. He was found in the home with a needle in his left antecubital space. There is scarring bilaterally in the antecubital fossa including a small resolving infection in the right antecubital fossa. EMS reports on arrival respirations were 4 to 6/min with oxygen saturation in the 70s he was placed on a nonrebreather and given Narcan woke up within a few seconds. He has been awake and alert since then. On arrival here patient admits to getting Dilaudid prescribed to him in a pill form which he crushes into a liquid form, converts to liquid form and injects it. He states he has been doing this for some time. EMS had thought he was a fentanyl overdose he states he never uses fentanyl only his prescribed Dilaudid. He receives the prescription from the pain clinic from Dr. Johan Galvez according to his pharmacy records. MD complaint: accidental overdose Intent: other (Accidental) How Overdose Was Discovered: family/friend present at time Context: Accidental Overdose: wanted to get high Treatments Prior to Arrival: oxygen and narcan Review of Systems Const: Denies: fever(s), chills, body aches, change in appetite, fatigue or malaise ENMT: Denies: throat pain, ear or mastoid pain, nasal discharge or nasal congestion Card: Denies: chest pain, edema, dyspnea on exertion or orthopnea Resp: Denies: dyspnea, productive cough or non-productive cough GI: Denies: abdominal pain, nausea, vomiting, hematemesis, coffee ground emesis, diarrhea, constipation, bloating, hematochezia or melena : Denies: flank pain, dysuria, urinary frequency or urinary urgency Skin/Breast: Denies: rash or pruritus PFSH ED PFSH: Medical History Shoulder pain Surgical History History of rotator cuff surgery right and left shoulder Family History Father Hypertension Social History Second hand smoke exposure: No Smoking risk assessment/counseling performed?: Yes Alcohol intake: never Desire information about alcohol rehabilitation?: No Counseling given: No Desire information about substance/drug rehabilitation?: No Counseling given: No Caregiver/support person: No Lives independently: Yes Household members: family Housing: House Marital status: Number of children: 3 Highest education level completed: High School Graduate service: No Current occupational status: disabled Pets and animals: No History of recent travel: No Physical Exam Const: GENERAL APPEARANCE: cooperative and comfortable ORIENTATION/CONSCIOUSNESS: Yes awake, Yes oriented to person, Yes oriented to place and Yes oriented to time HENMT: COMMON NORMALS: normocephalic, atraumatic and hearing grossly normal bilaterally HEAD & SCALP: normocephalic and atraumatic Resp: COMMON NORMALS: normal respiratory effort, No retractions, No use of accessory muscles and clear to auscultation bilaterally AUSCULTATION: clear to auscultation bilaterally Cardio: COMMON NORMALS: regular rate, regular rhythm and No murmurs present (Cardio) RATE: regular rate RHYTHM: regular rhythm GI: COMMON NORMALS: Soft to palpation and No hepatosplenomegaly present AUSCULTATION: Yes normoactive bowel sounds PALPATION: Yes Soft to palpation, No Tenderness to palpation present (GI), No Guarding due to palpation present (GI) and Yes No hepatosplenomegaly present Extremity: COMMON NORMALS: normal to inspection, capillary refill normal, no clubbing, cyanosis or edema, no calf tenderness and no pedal edema Neuro: SENSORIUM/ORIENTATION: Yes oriented to person, Yes oriented to place and Yes oriented to time Skin: COMMON NORMALS: no rashes or lesions noted GENERAL SKIN EXAM: no rashes or lesions noted Course Vital Signs: Vital signs: Vital Signs Temperature 98.8 F 02/14/22 05:41 Pulse Rate 110 H 02/14/22 06:50 Respiratory Rate 20 H 02/14/22 06:25 Blood Pressure 148/93 02/14/22 06:50 Pulse Oximetry 100 02/14/22 06:50 Oxygen Delivery Me thod 02/14/22 06:50 MDM - Overdose Medical Decision Making Patient tested positive for opiates methamphetamines and benzodiazepines. Discussed with him he admits he has been crushing of the Dilaudid getting into a liquid form and injecting it he has significant number of track garzon in both antecubital fossa's endorsing this. Discussed and is very dangerous nearly killed him this morning that he likely would have his family not called 911. He expressed understanding but states he needs to do that to maintain adequate pain control. Usually sees Dr. Annette Galvez at the [facility] pain clinic in [facility]. Encouraged him to avoid use of medicines not prescribed him such as benzodiazepines. Abstain from methamphetamines. Only take his Dilaudid as it has been prescribed. Medical Records I reviewed the patient's medical records. Lab Data I reviewed the patient's lab results. 02/14/22 05:45 02/14/22 05:45 Laboratory Results WBC 9.8 10^3/uL (4.0-10.0) 02/14/22 05:45 RBC 4.52 10^6/uL (4.1-5.3) 02/14/22 05:45 Hgb 12.4 g/dL (11.7-16.6) 02/14/22 05:45 Hct 40.3 % (42.0-52.0) L 02/14/22 05:45 MCV 89.2 fl (80-94) 02/14/22 05:45 MCH 27.4 pg (28.0-34.0) L 02/14/22 05:45 MCHC 30.8 g/dL (30.0-36.0) 02/14/22 05:45 RDW 14.7 % (12.1-15.1) 02/14/22 05:45 Plt Count 286 10^3/cmm (130-400) 02/14/22 05:45 MPV 9.7 fL (7.4-10.4) 02/14/22 05:45 Neut % (Auto) 80.6 % 02/14/22 05:45 Lymph % (Auto) 12.6 % 02/14/22 05:45 [place] % (Auto) 4.6 % 02/14/22 05:45 Eos % (Auto) 1.0 % 02/14/22 05:45 Baso % (Auto) 0.3 % 02/14/22 05:45 Neut # (Auto) 7.86 10^3/uL (1.8-7.7) H 02/14/22 05:45 Lymph # (Auto) 1.2 10^3/uL (0.8-4.8) 02/14/22 05:45 [place] # (Auto) 0.5 10^3/uL (0.2-0.9) 02/14/22 05:45 Eos # (Auto) 0.1 10^3/uL (0.0-0.8) 02/14/22 05:45 Baso # (Auto) 0.0 10^3/uL (0.0-0.1) 02/14/22 05:45 Nucleated RBC % (auto) 0 % 02/14/22 05:45 Nucleated RBCs # 0.0 /100WBC 02/14/22 05:45 Sodium 137 mmol/L (136-145) 02/14/22 05:45 Potassium 4.3 mmol/L (3.5-5.1) 02/14/22 05:45 Chloride 96 mmol/L (98-107) L 02/14/22 05:45 Carbon Dioxide 30 mmol/L (22-29) H 02/14/22 05:45 Anion Gap 15.3 (5-19) 02/14/22 05:45 BUN 16 mg/dL (6-20) 02/14/22 05:45 Creatinine 1.1 mg/dL (0.7-1.2) 02/14/22 05:45 GFR Calculation 70.3 mL/min (90-130) L 02/14/22 05:45 Glucose 156 mg/dL (65-115) H 02/14/22 05:45 Calculated Osmolality 288 mOsm/kg (285-295) 02/14/22 05:45 Calcium 9.1 mg/dL (8.5-10.5) 02/14/22 05:45 Total Bilirubin 0.2 mg/dL (0.15-1.2) 02/14/22 05:45 AST 28 U/L (0-40) 02/14/22 05:45 ALT 25 U/L (0-41) 02/14/22 05:45 Alkaline Phosphatase 133 U/L (40-130) H 02/14/22 05:45 Total Protein 8.0 g/dL (6.6-8.7) 02/14/22 05:45 Albumin 3.8 g/dL (3.5-5.2) 02/14/22 05:45 Globulin 4.2 g/dL (1.3-4.6) 02/14/22 05:45 Urine Color Yellow (Yellow) 02/14/22 06:32 Urine Appearance Hazy (CLEAR) A 02/14/22 06:32 Urine pH 6 (5-7) 02/14/22 06:32 Ur Specific [place] 1.020 (1.005-1.030) 02/14/22 06:32 Urine Protein 2+ (Negative) H 02/14/22 06:32 Urine Glucose (UA) Norm (Normal) 02/14/22 06:32 Urine Ketones Negative (Negative) 02/14/22 06:32 Urine Blood 2+ (Negative) H 02/14/22 06:32 Urine Nitrate Negative (Negative) 02/14/22 06:32 Urine Bilirubin Neg (Negative) 02/14/22 06:32 Urine Urobilinogen Neg mg/dL (Negative) 02/14/22 06:32 Ur Leukocyte Esterase 1+ (Negative) H 02/14/22 06:32 Urine RBC 5-10 /hpf (0-2) H 02/14/22 06:32 Urine WBC None /hpf (0-5) 02/14/22 06:32 Ur Squamous Epith Cells None /hpf (0-5) 02/14/22 06:32 Amorphous Sediment Not Reportable 02/14/22 06:32 Urine Bacteria 3+ /hpf (NONE) H 02/14/22 06:32 Urine Sperm 2+ /hpf 02/14/22 06:32 Urine Opiates Screen Positive ng/mL (Negative) H 02/14/22 06:32 Ur Barbiturates Screen Negative ng/mL (Negative) 02/14/22 06:32 Ur Phencyclidine Scrn Negative ng/mL (Negative) 02/14/22 06:32 Ur Amphetamines Screen Positive ng/mL (Negative) H 02/14/22 06:32 U Benzodiazepines Scrn Positive ng/mL (Negative) H 02/14/22 06:32 Urine Cocaine Screen Negative ng/mL (Negative) 02/14/22 06:32 U Marijuana (THC) Screen Negative ng/mL (Negative) 02/14/22 06:32 Discharge Plan Discharge Patient Disposition: Home Clinical Impression: Narcotic overdose, Methamphetamine abuse, Benzodiazepine abuse Condition: Stable Prescriptions: No Action Percocet 5-325 mg tablet 1 tab PO Q4H PRN (Reason: pain) Qty: 10 0RF Discharge Orders: Discharge ED (Routine); Ordered 02/14/22 Ordered By: Calin You Referrals: Ned Nguyen, FREEZER UNLOADER-C [Primary Care Provider] - Patient Instructions: Opioid Safety, Pain Management Activity Restrictions/Additional Instructions: You were seen today in the emergency room for narcotics overdose from the Dilaudid that you had converted to liquid form and injected. Recommend that you discuss with your pain clinic doctor and consider other alternatives for pain control. Also recommend abstaining from the use of methamphetamines and benzodiazepines when you are taking narcotics. Recommend that you seek assistance for substance abuse at an inpatient program. Coding Level of Care Code ED Split And Drum Room Supervisor for Piedad Fwd Exam Detailed
[2022-02-14 06:18] LABS: Alanine Aminotransferase 25 U/L (0-41); Albumin Level 3.8 g/dL (3.5-5.2); Alkaline Phosphatase 133 U/L (40-130); Anion Gap 15.3 (5-19); Aspartate Amino Transferase 28 U/L (0-40); Blood Urea Nitrogen 16 mg/dL (6-20); Calcium 9.1 mg/dL (8.5-10.5); Carbon Dioxide 30 mmol/L (22-29); Chloride 96 mmol/L (98-107); Globulin 4.2 g/dL (1.3-4.6); Glomerular Filtration Rate 70.3 mL/min (90-130); Glucose 156 mg/dL (65-115); Osmolality Calculated 288 mOsm/kg (285-295); Potassium 4.3 mmol/L (3.5-5.1); Sodium 137 mmol/L (136-145); Total Bilirubin 0.2 mg/dL (0.15-1.2)
[2022-02-14 06:25] VITALS: BP 115/81; PULSE 113; RESP 20; O2SAT 97
--- NOTE | 2022-02-14 06:29 | XR_ITS ---
WS: [id number] Exam: XR chest 1V portable [id number] Date/Time of Exam: 02/14/2022 6:29 AM Reason For Exam: dyspnea/cough Comparison 07/12/2011. The lungs are fully expanded and clear. The heart is not enlarged. No pleural effusions. Levoscoliosi s of the thoracic spine. Prominence of the superior mediastinum on the right appears to be chronic. R ight-sided partially visualized reverse shoulder prosthesis. Remaining bony elements are intact. Impression 1. No acute cardiopulmonary finding.
--- NOTE | 2022-02-14 06:42 | PC.NURSE ---
patient able to ambulate to bathroom without assistance.
[2022-02-14 06:50] VITALS: BP 148/93; PULSE 110; O2SAT 100
[2022-02-14 06:58] LABS: Protein Urine 2+ (Negative); Urine Appearance Hazy (CLEAR); Urine Color Yellow (Yellow); pH Urine 6 (5-7)
[2022-02-14 06:59] LABS: Add Urine Microscopic? YES; Bilirubin Urine Neg (Negative); Blood Urine 2+ (Negative); Glucose Urine UA Norm (Normal); Ketones Urine Negative (Negative); Leukocyte Esterase Urine 1+ (Negative); Nitrate Urine Negative (Negative); Urobilinogen Urine Neg (Negative)
[2022-02-14 07:02] LABS: Amphetamines Screen Urine Positive (Negative); Barbiturates Screen Urine Negative (Negative); Benzodiazepines Screen Urine Positive (Negative); Cocaine Screen Urine Negative (Negative); Opiate Screen Urine Positive (Negative); PCP Screen Urine Negative (Negative); THC Screen Urine Negative (Negative)
[2022-02-14 07:05] LABS: Bacteria Urine 3+ /hpf
[2022-02-14 07:06] LABS: Add Urine Culture? Yes; Sperm Urine 2+ /hpf
--- NOTE | 2022-02-14 18:34 | PC.NURSE ---
PT CONTACTED IN REGARDS TO CALLING IN A PRESCRIPTION FOR NARCAN. PT STATED I ALREADY HAVE SOME. I DON'T NEED IT.
== END 2022-02-14 07:30 | disposition home or self-care (01) ==
PROVIDERS: Emergency Provider Family Medicine; PCP Nurse Practitioner
DX: T40.601A Poisoning by unspecified narcotics, accidental (unintentional), initial encounter (principal); F15.10 Other stimulant abuse, uncomplicated; F13.10 Sedative, hypnotic or anxiolytic abuse, uncomplicated
CPT/HCPCS: 71045; 80053; 80306; 81001; 85025; 87077; 87086; 87186; 93005; 96374; 99285; J2310; J7030

== ENCOUNTER 2022-06-01 06:37 | Inpatient (IN) | payer MEDICARE, MEDICAID, SELFPAY ==
[2022-06-01] VITALS (42 sets, daily range): BP systolic 48–140; BP diastolic 30–103; PULSE 0–128; RESP 16–24; TEMP 34.6; O2SAT 85–100; BMI 33.6
--- NOTE | 2022-06-01 06:49 | XRR_ITS ---
PROCEDURE INFORMATION: Exam: XR Chest Exam date and time: 06/01/2022 6:52 AM Age: 51 years old Clinical indication: Device placement; Ett placement (vent status); Additional info: Post intubation TECHNIQUE: Imaging protocol: Radiologic exam of the chest. Views: 1 view. COMPARISON: CR XR chest 1V portable [id number] 02/14/2022 6:46 AM FINDINGS: Tubes, catheters and devices: Endotracheal tube about 2.5 cm cephalad to juan c. Lungs: Patchy asymmetric right upper lobe opacities are new from comparison. Pleural spaces: Unremarkable. No pleural effusion. No pneumothorax. Heart/Mediastinum: Mildly enlarged cardiac silhouette. Bones/joints: Pre-existing upper thoracic spine kyphosis. Right shoulder arthroplasty noted. Truncated right distal clavicle redemonstrated. XR/XR chest 1V portable [id number] IMPRESSION: 1. Unremarkable endotracheal tube position. 2. Asymmetric right upper lung opacities may represent pneumonia, pulmonary hemorrhage, or edema.
--- NOTE | 2022-06-01 06:51 | ECG_ITS ---
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 Measurements Intervals [place] Rate: 68 P: 0 WI: 0 QRS: 235 QRSD: 206 T: 0 QT: 306 QTc: 326 Interpretive Statements UNCERTAIN REGULAR RHYTHM RIGHT AXIS DEVIATION [QRS AXIS > 100] RIGHT BUNDLE BRANCH BLOCK [120+ ms QRS DURATION, UPRIGHT V1, 40+ ms S IN I/aVL/V4/V5/V6] Wide QRS complexes INFERIOR MYOCARDIAL INFARCTION , POSSIBLY ACUTE [40+ ms Q WAVE AND/OR ST/T ABNORMALITY IN II/aVF] ACUTE ID Compared to ECG 02/14/2022 05:44:54 Right-axis deviation now present Right bundle-branch block now present.Sinus tachycardia no longer present.Intraventricular conduction delay no longer present Myocardial infarct finding still present Electronically Signed On 06-01-2022 22:02:54 CDT by Lorie Elaine M.D. [email or web address]/store/[id number]
--- NOTE | 2022-06-01 07:10 | ECG_ITS ---
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 Measurements Intervals [place] Rate: 65 P: 0 MT: 0 QRS: 193 QRSD: 178 T: 25 QT: 330 QTc: 344 Interpretive Statements UNCERTAIN REGULAR RHYTHM RIGHT BUNDLE BRANCH BLOCK [120+ ms QRS DURATION, UPRIGHT V1, 40+ ms S IN I/aVL/V4/V5/V6] LEFT POSTERIOR FASCICULAR BLOCK [QRS AXIS > 109, INFERIOR Q] ST DEPRESSION, CONSIDER SUBENDOCARDIAL INJURY [0.1+ mV ST DEPRESSION] INTERPRETATION BASED ON A DEFAULT AGE OF 40 YEARS Compared to ECG 06/01/2022 06:51:09 Left posterior fascicular block now present ST (T wave) deviation now present Right-axis deviation no longer present Myocardial infarct finding no longer present Electronically Signed On 06-01-2022 22:15:09 CDT by Lorie Elaine M.D. [id number]
[2022-06-01 07:12] LABS: Basophils # 0.1 10^3/uL (0.0-0.1); Basophils % 0.4 %; Eosinophils # 0.1 10^3/uL (0.0-0.8); Hemoglobin 13.7 g/dL (11.7-16.6); Lymphocytes # 6.1 10^3/uL (0.8-4.8); Lymphocytes % 51.3 %; Mean Corpuscular HGB Conc 29.8 g/dL (30.0-36.0); Mean Corpuscular Hemoglobin 28.2 pg (28.0-34.0); Mean Corpuscular Volume 94.7 fl (80-94); Mean Platelet Volume 9.9 fL (7.4-10.4); Monocytes # 0.6 10^3/uL (0.2-0.9); Neutrophils # 4.47 10^3/uL (1.8-7.7); Neutrophils % 37.4 %; Nucleated Red Blood Cells % 0.3 %; Platelet Count 182 10^3/cmm (130-400); Red Blood Count 4.86 10^6/uL (4.1-5.3); Red Cell Distribution Width 14.5 % (12.1-15.1)
[2022-06-01 07:19] LABS: INR 1.23 (0.8-1.2)
[2022-06-01 07:20] LABS: Partial Thromboplastin Time 54.4 SECONDS (23.9-36.7)
[2022-06-01 07:26] LABS: ABG PCO2 74.9 mmHg (35-45); ABG PH Result 7.06 (7.35-7.45); Arterial Blood Gas Hematocrit 39.7 % (42-52); Base Excess ABG -10.2 mmol/L (-2.0-2.0); Blood Gas Allen Test Pos; Blood Gas Operator Identificat CAK; Blood Gas Sample Site Femoral, right; Blood Gas Sample Type Arterial; Carboxyhemoglobin 1.5 %THgb (0.4-20.1); HCO3 ABG 21.2 mmol/L (22-26); HGB O2 Sat 88.8 % (95-100); Methemoglobin < 0.0 % (0.4-1.5); Oxygen Device AMBU; PO2 ABG 82.9 mmHg (80.0-100.0); Total Hemoglobin 12.9 g/dL (14-18)
[2022-06-01 07:29] LABS: Alanine Aminotransferase 61 U/L (0-41); Albumin Level 3.7 g/dL (3.5-5.2); Alkaline Phosphatase 106 U/L (40-130); Aspartate Amino Transferase 79 U/L (0-40); Blood Urea Nitrogen 23 mg/dL (6-20); Calcium 9.1 mg/dL (8.5-10.5); Carbon Dioxide 19 mmol/L (22-29); Chloride 91 mmol/L (98-107); Globulin 3.1 g/dL (1.3-4.6); Glomerular Filtration Rate 45.6 mL/min (90-130); Glucose 342 mg/dL (65-115); Magnesium 2.9 mg/dL (1.7-2.3); Osmolality Calculated 295 mOsm/kg (285-295); Sodium 134 mmol/L (136-145); Total Bilirubin 0.2 mg/dL (0.15-1.2); Total Protein 6.8 g/dL (6.6-8.7); Troponin(5th) Baseline 96 ng/L (0-15)
[2022-06-01 07:31] LABS: Acetaminophen < 5.0 ug/mL (10-30); Alcohol Level < 10 mg/dL (0-10); Salicylate < 0.3 mg/dL (3-10)
[2022-06-01 07:32] LABS: Anion Gap 27.9 (5-19); Potassium 3.9 mmol/L (3.5-5.1)
[2022-06-01] MEDS: EPINEPHrine 2.5 MG in sodium chloride 0.9% 250 ML 60.6 MG IV (07:33)
[2022-06-01 07:34] LABS: Phosphorus 8.9 mg/dL (2.5-4.5)
--- NOTE | 2022-06-01 08:04 | W.ED.CPR ---
HPI - CPR General: Chief Complaint: Cardiac Arrest/CPR Stated Complaint: OD Time Seen by Provider: 06/01/22 06:52 Limitations: altered mental status and other (Cardiac arrest) History of Present Illness: 51-year-old gentleman presenting to the emergency department in cardiac arrest. See MDM/ED course Time: 05:30 Timing confirmed by: family member Place: home Bystander CPR performed: No Downtime before ACLS arrival (mins): 10 Initial findings in the field: unresponsive, no respirations and no pulse ROSC in the field: No (Achieved then lost) Treatments prior to arrival: intubation, chest compressions and epinephrine mgs # Review of Systems General: Reports: ROS unobtainable due to medical condition and Other (Cardiac arrest) FOR[facility] ED PFSH: Medical History Shoulder pain Surgical History History of rotator cuff surgery right and left shoulder Family History Father Hypertension Social History Second hand smoke exposure: No Smoking risk assessment/counseling performed?: Yes Alcohol intake: never Desire information about alcohol rehabilitation?: No Counseling given: No Desire information about substance/drug rehabilitation?: No Counseling given: No Caregiver/support person: No Lives independently: Yes Household members: family Housing: House Marital status: Number of children: 3 Highest education level completed: High School Graduate service: No Current occupational status: disabled Pets and animals: No Physical Exam Const: GENERAL APPEARANCE: well developed and ill appearing OTHER: Unresponsive/cardiac arrest HENMT: COMMON NORMALS: normocephalic and atraumatic HEAD & SCALP: normocephalic and atraumatic Eye: COMMON NORMALS: conjunctivae normal CONJUNCTIVA: Yes conjunctivae normal SCLERA: sclerae normal Neck/C-Spine: COMMON NORMALS: supple GENERAL: Yes trachea midline Resp: OTHER: Equal breath sounds, mechanical ventilation Cardio: OTHER: No pulse, CPR in progress. GI: COMMON NORMALS: Soft to palpation PALPATION: Yes Soft to palpation Extremity: GENERAL: Yes normal exam except as noted and No edema Neuro: AKHIL COMA SCALE: document GCS findings Akhil coma scale eye opening: None Akhil coma scale verbal response: None Levant coma scale motor response: None Akhil coma scale total score: 3 OTHER: 3T. cardiac arrest Skin: NARRATIVE SKIN EXAM: Mottling Procedures Arterial Line Time Out Performed: Yes Size (Gauge): 20 Technique Used: guide wire technique Post-Procedure: line sutured into place and dry sterile dressing placed Patient Tolerated Procedure: well and no complications Site: right and radial Central Line Placement Right Femoral: Time Out Performed: Yes Patient Placed on Monitor/Pulse Ox: Yes MD Prep: mask, gown and gloves Central Line Prep: Povidone-Iodine 1%, Chlorhexidine scrub and sterile drapes applied Ultrasound Used for Placement: Yes Central Line Lumen Inserted: triple Post Procedure: sutured in place, good blood return, all ports aspirated, flushed, capped and sterile dressing applied Patient Tolerated Procedure: well and no complications Course Vital Signs: Vital signs: Vital Signs Pulse Rate 0 L 06/01/22 06:37 Respiratory Rate 23 H 06/01/22 09:51 Pulse Oximetry 100 06/01/22 09:51 Fraction of Inspir ed Oxygen 80 06/01/22 09:51 MDM - Cardiac Arrest/CPR Medical Decision Making 51-year-old gentleman presenting to the emergency department in cardiac arrest. Apparently went to the bathroom at approximately 5:30 in the morning and family heard a bang and found patient unresponsive. No bystander CPR and EMS reports being on scene approximately 10 minutes after initial call. They found patient unresponsive with no pulse and began CPR. Initial rhythm was PEA. Patient was intubated and received a total number of epinephrine 1 mg doses of 7. They also gave 2 mg of Narcan. There was a short approximately 1 minute period of time with ROSC while in route however patient subsequently lost pulse again and CPR was resumed with a Pietro device. On initial arrival patient in PEA. High-quality CPR was resumed and eventually ROSC was achieved. See nursing flowsheet for full list of medications and treatments during cardiac arrest. Patient did have subsequent loss of pulse again requiring CPR however I suspect that this is secondary to decreased cardiac output as [id number] ultrasound reveals organized cardiac activity. Once ROSC was achieved patient placed on norepi and subsequently required epinephrine drip as well for persistent hypotension on single pressor. Chest x-ray reviewed at bedside with satisfactory ET tube placement. Lung sounds are clear and equal bilaterally. End-tidal CO2 appropriate as is pulse oximetry during resuscitation. Labs notable for leukocytosis, normal hemoglobin and platelet count. Metabolic panel with PATRICK and mild transaminitis likely reflecting possible developing shock liver. Initial ABG 7.06/74.9/82.9. Somewhat improved on repeat. RT performed appropriate vent changes. Per supplemental information provided by family the patient does have a history of hypertension, he apparently had a UT when he was young however details are somewhat unclear. Other than headache he has been at his baseline health. Given concerning nature of symptoms I will order CT imaging. Low clinical suspicion for major mechanism of injury and given provided clinical history as noted The results of ED evaluation were discussed with the patient's family including plan for admission due to requirement for level of care not available if discharged to prevent significant worsening/deterioration. Family agreeable with plan. Discussed with hospitalist service who was agreeable to admit patient. In discussion with admitting physician cardiology service consulted, stat echo ordered. Lab Data 06/01/22 06:45 06/01/22 06:45 Radiology Impressions Cervical Spine CT 06/01/22 08:07 IMPRESSION: 1. No spinal fracture. 2. Right lung consolidation consistent with aspiration or pulmonary contusions. 3. Acute nondisplaced fractures of the left posterior 1st and right anterior 2nd ribs. 4. Severe diffuse cervical disc and facet degeneration. THIS REPORT CONTAINS FINDINGS THAT MAY BE CRITICAL TO PATIENT CARE. The findings were verbally communicated via telephone conference with Augie Garcia at 9:53 AM CDT on 06/01/2022. The findings were acknowledged and understood. Chest/Abdomen/Pelvis CT 06/01/22 08:07 IMPRESSION: 1. Ground-glass and consolidative airspace opacities within the right lung may reflect some combination of aspiration, pneumonia and atelectasis. 2. Acute minimally displaced right anterior 1st through 5th rib fractures. Acute nondisplaced left posterior 1st rib fracture and mildly displaced left anterior 2nd through 4th rib fractures. No ribs are fractured in 2 or more places. 3. Acute nondisplaced sternal fracture. IMPRESSION: No acute findings. Head CT 06/01/22 08:07 IMPRESSION: Severe diffuse cerebral edema. ADDENDUM: 06/01/22 0957 THIS REPORT CONTAINS FINDINGS THAT MAY BE CRITICAL TO PATIENT CARE. The findings were verbally communicated via telephone conference with Augie Garcia at 9:55 AM CDT on 06/01/2022. The findings were acknowledged and understood. Chest CTA 06/01/22 08:31 IMPRESSION: 1. No pulmonary emboli identified. 2. Ground-glass and consolidative airspace opacities within the right lung may reflect some combination of aspiration, pneumonia and atelectasis. 3. Acute minimally displaced right anterior 1st through 5th rib fractures. Acute nondisplaced left posterior 1st rib fracture and mildly displaced left anterior 2nd through 4th rib fractures. No ribs are fractured in 2 or more places. 4. Acute nondisplaced sternal fracture. Chest X-Ray 06/01/22 08:38 IMPRESSION: 1. Satisfactory NG tube position. 2. Unchanged nonspecific opacity in the right lung. 3. Stable satisfactory endotracheal tube position. Laboratory Results WBC 12.0 10^3/uL (4.0-10.0) H 06/01/22 06:45 RBC 4.86 10^6/uL (4.1-5.3) 06/01/22 06:45 Hgb 13.7 g/dL (11.7-16.6) 06/01/22 06:45 Hct 46.0 % (42.0-52.0) 06/01/22 06:45 MCV 94.7 fl (80-94) H 06/01/22 06:45 MCH 28.2 pg (28.0-34.0) 06/01/22 06:45 MCHC 29.8 g/dL (30.0-36.0) L 06/01/22 06:45 RDW 14.5 % (12.1-15.1) 06/01/22 06:45 Plt Count 182 10^3/cmm (130-400) 06/01/22 06:45 MPV 9.9 fL (7.4-10.4) 06/01/22 06:45 Neut % (Auto) 37.4 % 06/01/22 06:45 Lymph % (Auto) 51.3 % 06/01/22 06:45 [place] % (Auto) 5.0 % 06/01/22 06:45 Eos % (Auto) 1.0 % 06/01/22 06:45 Baso % (Auto) 0.4 % 06/01/22 06:45 Neut # (Auto) 4.47 10^3/uL (1.8-7.7) 06/01/22 06:45 Lymph # (Auto) 6.1 10^3/uL (0.8-4.8) H 06/01/22 06:45 [place] # (Auto) 0.6 10^3/uL (0.2-0.9) 06/01/22 06:45 Eos # (Auto) 0.1 10^3/uL (0.0-0.8) 06/01/22 06:45 Baso # (Auto) 0.1 10^3/uL (0.0-0.1) 06/01/22 06:45 Nucleated RBC % (auto) 0.3 % 06/01/22 06:45 Nucleated RBCs # 0.0 /100WBC 06/01/22 06:45 PT 16.00 SECONDS (12.1-14.9) H 06/01/22 06:45 INR 1.23 (0.8-1.2) H 06/01/22 06:45 APTT 54.4 SECONDS (23.9-36.7) H 06/01/22 06:45 Specimen Type Arterial 06/01/22 07:54 Sample Site Artline 06/01/22 07:54 ABG pH 7.18 (7.35-7.45) L* 06/01/22 07:54 ABG pCO2 45.1 mmHg (35-45) H 06/01/22 07:54 ABG pO2 109.0 mmHg (80.0-100.0) H 06/01/22 07:54 ABG HCO3 16.7 mmol/L (22-26) L 06/01/22 07:54 ABG O2 Saturation 97.0 06/01/22 07:54 ABG Base Excess -11.4 mmol/L (-2.0-2.0) L 06/01/22 07:54 Kishor Test Pos 06/01/22 07:54 A-a O2 Gradient 72.1 mmHg (5-10) H 06/01/22 07:54 Hematocrit 37.4 % (42-52) L 06/01/22 07:54 Hgb O2 Saturation 94.7 % (95-100) L 06/01/22 07:54 Carboxyhemoglobin 1.4 %THgb (0.4-20.1) 06/01/22 07:54 Methemoglobin 1.0 % (0.4-1.5) 06/01/22 07:54 Total Hemoglobin 12.2 g/dL (14-18) L 06/01/22 07:54 Sodium 139.0 mmol/L (131-143) 06/01/22 07:54 Potassium 5.1 mmol/L (3.5-5.0) H 06/01/22 07:54 Glucose 418.0 mg/dL (70-115) H 06/01/22 07:54 Ionized Calcium 1.2 mmol/L (1.1-1.4) 06/01/22 07:54 O2 Delivery Device Vent 06/01/22 07:54 O2 Liters/Min 15.0 % 06/01/22 07:00 FiO2 100.0 % 06/01/22 07:54 Tidal Volume 0.55 06/01/22 07:54 PEEP 8.0 cmH20 06/01/22 07:54 Rag Cutting Machine Feeder ID Cak 06/01/22 07:54 Sodium 134 mmol/L (136-145) L 06/01/22 06:45 Potassium 3.9 mmol/L (3.5-5.1) 06/01/22 06:45 Chloride 91 mmol/L (98-107) L 06/01/22 06:45 Carbon Dioxide 19 mmol/L (22-29) L 06/01/22 06:45 Anion Gap 27.9 (5-19) H 06/01/22 06:45 BUN 23 mg/dL (6-20) H 06/01/22 06:45 Creatinine 1.6 mg/dL (0.7-1.2) H 06/01/22 06:45 GFR Calculation 45.6 mL/min (90-130) L 06/01/22 06:45 Glucose 342 mg/dL (65-115) H 06/01/22 06:45 Calculated Osmolality 295 mOsm/kg (285-295) 06/01/22 06:45 Calcium 9.1 mg/dL (8.5-10.5) 06/01/22 06:45 Phosphorus 8.9 mg/dL (2.5-4.5) H* 06/01/22 06:45 Magnesium 2.9 mg/dL (1.7-2.3) H 06/01/22 06:45 Total Bilirubin 0.2 mg/dL (0.15-1.2) 06/01/22 06:45 AST 79 U/L (0-40) H 06/01/22 06:45 ALT 61 U/L (0-41) H 06/01/22 06:45 Alkaline Phosphatase 106 U/L (40-130) 06/01/22 06:45 Troponin T Baseline 96 ng/L (0-15) H 06/01/22 06:45 Total Protein 6.8 g/dL (6.6-8.7) 06/01/22 06:45 Albumin 3.7 g/dL (3.5-5.2) 06/01/22 06:45 Globulin 3.1 g/dL (1.3-4.6) 06/01/22 06:45 Salicylates < 0.3 mg/dL (3-10) L 06/01/22 06:45 Acetaminophen < 5.0 ug/mL (10-30) L 06/01/22 06:45 Ethyl Alcohol < 10 mg/dL (0-10) 06/01/22 06:45 Critical Care Time Critical Care Time: Critical Care Time: Yes Total Critical Care Time: 135 Attestation: Due to a high probability of clinically significant, possibly life threatening deterioration, the patient required my highest level of attention and preparedness to intervene emergently and I personally spent this critical care time directly and personally managing the patient. This critical care time included obtaining a history; examining the patient; pulse oximetry; ordering and review of laboratory and imaging studies; arranging urgent treatment with development of a management plan; evaluation of patient's response to treatment; frequent reassessment; and, discussions with other providers as applicable. It was exclusive of separately billable procedures. Primary system involved is cardiopulmonary Discharge Plan Discharge Patient Disposition: Admitted As Inpatient Admit Provider: Jean Marie Cruz Clinical Impression: Cardiac arrest, Leukocytosis, Hypercapnic acidosis, Creatinine elevation, Transaminitis Condition: Stable Coding Level of Care Code ED [employer] for Piedad Gonzalez
[2022-06-01 08:06] LABS: ABG PCO2 45.1 mmHg (35-45); ABG PH Result 7.18 (7.35-7.45); Alveolar-Arterial Oxygen Gradi 72.1 mmHg (5-10); Arterial Blood Gas Hematocrit 37.4 % (42-52); Base Excess ABG -11.4 mmol/L (-2.0-2.0); Blood Gas Allen Test Pos; Blood Gas Operator Identificat CAK; Blood Gas Sample Site ARTLINE; Blood Gas Sample Type Arterial; Blood Gas Tidal Volume 0.55; Carboxyhemoglobin 1.4 %THgb (0.4-20.1); HCO3 ABG 16.7 mmol/L (22-26); HGB O2 Sat 94.7 % (95-100); Ionized Calcium Level - ABG 1.2 mmol/L (1.1-1.4); Oxygen Device VENT; Potassium Level - ABG 5.1 mmol/L (3.5-5.0); Total Hemoglobin 12.2 g/dL (14-18)
--- NOTE | 2022-06-01 08:07 | CTR_ITS ---
PROCEDURE INFORMATION: Exam: CT Cervical Spine Without Contrast Exam date and time: 06/01/2022 9:19 AM Age: 51 years old Clinical indication: Other: Cardiac arrest, possible fall TECHNIQUE: Imaging protocol: Computed tomography of the cervical spine without contrast. Radiation optimization: All CT scans at this facility use at least one of these dose optimization techniques: automated exposure control; mA and/or kV adjustment per patient size (includes targeted exams where dose is matched to clinical indication); or iterative reconstruction. REPORTING DATA: Count of CT and Cardiac NM exams in prior 12 months: This patient has received 6 known CTs and 0 known cardiac nuclear medicine studies in the 12 months prior to the current study. COMPARISON: CT cervical spin wo con* [id number] 03/03/2021 11:44 PM RADIATION DOSE METRICS: Total DLP (mGy-cm): 317.4 FINDINGS: Tubes, catheters and devices: Endotracheal and orogastric tubes are partially imaged. Bones/joints: There is loss of the normal cervical lordosis and grade 1 anterolisthesis of C5 on C6 and trace retrolisthesis of C6 on C7.There is marked degenerative disc disease in the cervical spine. There is severe multilevel facet spondylosis. 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 No spinal fracture. There is a nondisplaced acute fracture of the left posterior 1st rib. There is a nondisplaced fracture of the right anterior 2nd rib. There is moderate multilevel spinal canal stenosis. Lungs: There is ill-defined ground-glass opacity and consolidation in the right upper lung which is partially imaged. Soft tissues: Soft tissues in the neck and thoracic inlet are unremarkable. CT/CT cervical spin wo con* [id number] IMPRESSION: 1. No spinal fracture. 2. Right lung consolidation consistent with aspiration or pulmonary contusions. 3. Acute nondisplaced fractures of the left posterior 1st and right anterior 2nd ribs. 4. Severe diffuse cervical disc and facet degeneration. THIS REPORT CONTAINS FINDINGS THAT MAY BE CRITICAL TO PATIENT CARE. The findings were verbally communicated via telephone conference with Augie Garcia at 9:53 AM CDT on 06/01/2022. The findings were acknowledged and understood.
--- NOTE | 2022-06-01 08:07 | CTR_ITS ---
PROCEDURE INFORMATION: Exam: CT Chest Without Contrast; Diagnostic Exam date and time: 06/01/2022 9:24 AM Age: 51 years old Clinical indication: Other: Cardiac arrest, possible fall TECHNIQUE: Imaging protocol: Diagnostic computed tomography of the chest without contrast. Radiation optimization: All CT scans at this facility use at least one of these dose optimization techniques: automated exposure control; mA and/or kV adjustment per patient size (includes targeted exams where dose is matched to clinical indication); or iterative reconstruction. REPORTING DATA: Count of CT and Cardiac NM exams in prior 12 months: This patient has received 5 known CTs and 0 known cardiac nuclear medicine studies in the 12 months prior to the current study. COMPARISON: CT angio chest w abd pel w con 03/03/2021 11:49 PM RADIATION DOSE METRICS: Total DLP (mGy-cm): 1056.1 FINDINGS: Tubes, catheters and devices: Endotracheal tube terminates just above the juan c. Lungs: Ground-glass and consolidative airspace opacities are seen within the right lung. Left lower lobe atelectasis. Pleural spaces: Query small bilateral pleural effusions. Heart: Unremarkable. No cardiomegaly. No pericardial effusion. Coronary arteries: Minimal coronary artery calcification. Lymph nodes: Unremarkable. No enlarged lymph nodes. Vasculature: Unremarkable. No aortic aneurysm. Bones/joints: Similar large low-density collection about the right shoulder. Right shoulder arthroplasty changes. Acute minimally displaced right anterior 1st through 5th rib fractures. Acute nondisplaced left posterior 1st rib fracture and mildly displaced left anterior 2nd through 4th rib fractures. No ribs are fractured in 2 or more places. Levocurvature of the thoracic spine. Acute nondisplaced sternal fracture. Partial fusion across multiple thoracic vertebral bodies. Soft tissues: Unremarkable. PROCEDURE INFORMATION: Exam: CT Abdomen And Pelvis Without Contrast Exam date and time: 06/01/2022 9:24 AM Age: 51 years old Clinical indication: Other: Cardiac arrest, possible fall TECHNIQUE: Imaging protocol: Computed tomography of the abdomen and pelvis without contrast. Radiation optimization: All CT scans at this facility use at least one of these dose optimization techniques: automated exposure control; mA and/or kV adjustment per patient size (includes targeted exams where dose is matched to clinical indication); or iterative reconstruction. REPORTING DATA: Count of CT and Cardiac NM exams in prior 12 months: This patient has received 5 known CTs and 0 known cardiac nuclear medicine studies in the 12 months prior to the current study. COMPARISON: CT angio chest w abd pel w con 03/03/2021 11:49 PM RADIATION DOSE METRICS: Total DLP (mGy-cm): 1056.1 FINDINGS: Tubes, catheters and devices: Enteric tube terminates in the gastric body. Right femoral central venous catheter terminates in the right external iliac vein. Liver: Subcentimeter low-density lesions in the liver are too small to characterize, though statistically benign. Gallbladder and bile ducts: Normal. No calcified stones. No ductal dilation. Pancreas: Normal. No ductal dilation. Spleen: Normal. No splenomegaly. Adrenal glands: Stable 1.8 cm right adrenal adenoma. Similar thickening of the left adrenal gland. Kidneys and ureters: Normal. No hydronephrosis. Stomach and bowel: Colonic diverticulosis without evidence of diverticulitis. No bowel obstruction. Appendix: No evidence of appendicitis. Intraperitoneal space: Unremarkable. No free air. No significant fluid collection. Vasculature: Moderate burden of atherosclerotic plaque in the abdominal aorta and branch vessels. No aneurysm. Lymph nodes: Unremarkable. No enlarged lymph nodes. Urinary bladder: Panda catheter in the bladder. Reproductive: Unremarkable as visualized. Bones/joints: Unremarkable. No acute fracture. Soft tissues: There is some stranding in the region of the right inguinal canal, not substantially changed from prior, though the right testicle now appears more high riding of uncertain significance. CT/[place] [id number] IMPRESSION: 1. Ground-glass and consolidative airspace opacities within the right lung may reflect some combination of aspiration, pneumonia and atelectasis. 2. Acute minimally displaced right anterior 1st through 5th rib fractures. Acute nondisplaced left posterior 1st rib fracture and mildly displaced left anterior 2nd through 4th rib fractures. No ribs are fractured in 2 or more places. 3. Acute nondisplaced sternal fracture. IMPRESSION: No acute findings.
--- NOTE | 2022-06-01 08:07 | CTR_ITS ---
PROCEDURE INFORMATION: Exam: CT Head Without Contrast Exam date and time: 06/01/2022 9:19 AM Age: 51 years old Clinical indication: Other: Cardiac arrest, possible fall TECHNIQUE: Imaging protocol: Computed tomography of the head without contrast. Radiation optimization: All CT scans at this facility use at least one of these dose optimization techniques: automated exposure control; mA and/or kV adjustment per patient size (includes targeted exams where dose is matched to clinical indication); or iterative reconstruction. REPORTING DATA: Count of CT and Cardiac NM exams in prior 12 months: This patient has received 5 known CTs and 0 known cardiac nuclear medicine studies in the 12 months prior to the current study. COMPARISON: CT head wo con* [id number] 05/24/2017 3:59 PM RADIATION DOSE METRICS: Total DLP (mGy-cm): 1204.1 FINDINGS: Brain: There is diffuse sulcal effacement. Bill-white differentiation is diffusely obscured. There is no acute intracranial hemorrhage. No midline shift. No sign of uncal herniation. Cerebral ventricles: Ventricles are slit-like. Basal cisterns are partially effaced diffusely. Paranasal sinuses: The paranasal sinuses are clear. Mastoid air cells: The mastoid air cells are clear. Bones/joints: The calvarium is intact. Soft tissues: The visible extracranial soft tissues are unremarkable. CT/CT head wo con* [id number] IMPRESSION: Severe diffuse cerebral edema.
--- NOTE | 2022-06-01 08:30 | USCV_ITS ---
Ike Herrera Age: 51 Gender: M : 1970 Exam Date: 06/01/2022 09:53 Ordering Phys: Jean Marie Cruz MD Technologist: IVANA Exam Location: [facility] – [place] Indication: echo BP: / HR: 97 Rhythm: Sinus Technical Quality: Adequate MEASUREMENTS (Male / Female) Normal Values 2D ECHO LV Diastolic Diameter PLAX 4.8 cm 4.2 - 5.9 / 3.9 - 5.3 cm LV Systolic Diameter PLAX 3.4 cm IVS Diastolic Thickness 0.9 cm 0.6 - 1.0 / 0.6 - 0.9 cm IVS Systolic Thickness 1.3 cm LVPW Diastolic Thickness 0.8 cm 0.6 - 1.0 / 0.6 - 0.9 cm LVPW Systolic Thickness 1.2 cm LVOT Diameter 2.4 cm LV Ejection Fraction 2D Teich 56.2 % LV Ejection Fraction MOD 2C 46.2 % LV Ejection Fraction 2C AL 45.2 % LA Diameter 3.7 cm IVC Diameter 1.1 cm M-MODE Aortic Annulus Diameter 3.5 cm LA Ao Ratio MM 0.9 MV E Point Septal Separation 1.0 cm DOPPLER AV Peak Velocity 102.0 cm/s LVOT Peak Velocity 75.0 cm/s AV Area Cont Eq vti 3.2 cm squared AV Area Cont Eq pk 3.4 cm squared MV Area PHT 5.4 cm squared Mitral E to A Ratio 1.1 MV E' Velocity 38.0 cm/s Mitral E to MV E' Ratio 7.3 Mitral E to LV E' Lateral Ratio 7.6 Mitral E to LV E' Septal Ratio 7.1 TR Peak Velocity 162.0 cm/s TR Peak Gradient 10.5 mmHg TV Peak E Velocity 46.0 cm/s Right Atrial Pressure 3.0 mmHg Pulmonary Artery Systolic Pressu 13.5 mmHg PV Peak Velocity 70.0 cm/s FINDINGS Left Ventricle Normal left ventricular size and systolic function, EF 56 %. Mild left ventricular hypertrophy. No regional wall motion abnormalities. Abnormal septal motion consistent with conduction abnormality. Right Ventricle Normal right ventricular size and systolic function. Right Atrium No gross abnormalities noted Left Atrium No gross abnormalities noted normal chamber size Mitral Valve No gross abnormalities noted Aortic Valve Structurally normal aortic valve without significant sclerosis or stenosis. There is no aortic regurgitation. Tricuspid Valve Trace tricuspid valve regurgitation. Pulmonic Valve Structurally normal pulmonic valve without significant stenosis. There is no pulmonic regurgitation. Pericardium Normal pericardium without effusion. Aorta Normal ascending aorta dimension. IVC The inferior vena cava appears normal. CONCLUSIONS Normal left ventricular size and systolic function, EF 56 %. Mild left ventricular hypertrophy. No regional wall motion abnormalities. Abnormal septal motion consistent with conduction abnormality. Trace tricuspid valve regurgitation. PA pressure within normal limits. Could be an underestimation because of poor Doppler signals There is no pericardial effusion. There are no intracardiac masses. No similar previous studies are available for comparison Dr Lorie Elaine MD [facility] (Electronically Signed) Final Date: 01 June 2022 14:07 S
--- NOTE | 2022-06-01 08:31 | CTR_ITS ---
PROCEDURE INFORMATION: Exam: CTA Chest With Contrast Exam date and time: 06/01/2022 9:24 AM Age: 51 years old Clinical indication: Other: Cardiac arrest, possible fall; Additional info: SOB TECHNIQUE: Imaging protocol: Computed tomographic angiography of the chest with contrast. 3D rendering (Not supervised by radiologist): MIP and/or 3D reconstructed images were created by the technologist. Radiation optimization: All CT scans at this facility use at least one of these dose optimization techniques: automated exposure control; mA and/or kV adjustment per patient size (includes targeted exams where dose is matched to clinical indication); or iterative reconstruction. Contrast material: OMNI 350; Contrast volume: 76 ml; Contrast route: INTRAVENOUS (IV); REPORTING DATA: Count of CT and Cardiac NM exams in prior 12 months: This patient has received 6 known CTs and 0 known cardiac nuclear medicine studies in the 12 months prior to the current study. COMPARISON: CT angio chest w abd pel w con 03/03/2021 11:49 PM RADIATION DOSE METRICS: Total DLP (mGy-cm): 433.2 FINDINGS: Tubes, catheters and devices: Endotracheal tube terminates just above the juan c. Pulmonary arteries: Normal. No pulmonary emboli. Aorta: Unremarkable. No aortic aneurysm. No aortic dissection. Lungs: Ground-glass and consolidative airspace opacities are seen within the right lung. Left lower lobe atelectasis. Pleural spaces: Query small bilateral pleural effusions. Heart: Unremarkable. No cardiomegaly. No pericardial effusion. Coronary arteries: Minimal coronary artery calcification. Lymph nodes: Unremarkable. No enlarged lymph nodes. Bones/joints: Similar large low-density collection about the right shoulder. Right shoulder arthroplasty changes. Acute minimally displaced right anterior 1st through 5th rib fractures. Acute nondisplaced left posterior 1st rib fracture and mildly displaced left anterior 2nd through 4th rib fractures. No ribs are fractured in 2 or more [address]. Levocurvature of the thoracic spine. Acute nondisplaced sternal fracture. Partial fusion across multiple thoracic vertebral bodies. Soft tissues: Unremarkable. CT/CT angio chest PE protcl [id number] IMPRESSION: 1. No pulmonary emboli identified. 2. Ground-glass and consolidative airspace opacities within the right lung may reflect some combination of aspiration, pneumonia and atelectasis. 3. Acute minimally displaced right anterior 1st through 5th rib fractures. Acute nondisplaced left posterior 1st rib fracture and mildly displaced left anterior 2nd through 4th rib fractures. No ribs are fractured in 2 or more places. 4. Acute nondisplaced sternal fracture.
--- NOTE | 2022-06-01 08:38 | XRR_ITS ---
PROCEDURE INFORMATION: Exam: XR Chest Exam date and time: 06/01/2022 8:40 AM Age: 51 years old Clinical indication: Device placement; Ng tube; Additional info: Ng tube placement TECHNIQUE: Imaging protocol: Radiologic exam of the chest. Views: 1 view. COMPARISON: CR (CHEST, ) 06/01/2022 6:52 AM FINDINGS: Tubes, catheters and devices: The nasogastric tube is appropriately positioned with the tip in the stomach, well beyond the diaphragmatic hiatus. The endotracheal tube is appropriately positioned in the distal thoracic trachea with the tip above the juan c. Lungs: Lung volumes are low. There is ill-defined opacity in the right mid upper lung, stable since the prior radiograph. Left lung is grossly clear. Pleural spaces: The right lateral costophrenic sulcus is blunted. Heart/Mediastinum: There is mild enlargement of the cardiac silhouette. Bones/joints: Stable appearance of right shoulder arthroplasty. The distal right clavicle has been resected. XR/XR chest 1V portable [id number] IMPRESSION: 1. Satisfactory NG tube position. 2. Unchanged nonspecific opacity in the right lung. 3. Stable satisfactory endotracheal tube position.
--- NOTE | 2022-06-01 08:57 | PC.NURSE ---
See Code Sheet scanned into chart for meds and times.
[2022-06-01 09:19] LABS: Amphetamines Screen Urine Positive (Negative); Barbiturates Screen Urine Negative (Negative); Benzodiazepines Screen Urine Positive (Negative); Cocaine Screen Urine Negative (Negative); Opiate Screen Urine Negative (Negative); PCP Screen Urine Negative (Negative); THC Screen Urine Positive (Negative)
[2022-06-01 09:29] LABS: Add Urine Microscopic? YES; Bilirubin Urine Neg (Negative); Blood Urine 2+ (Negative); Glucose Urine UA Norm (Normal); Ketones Urine Negative (Negative); Leukocyte Esterase Urine 2+ (Negative); Nitrate Urine Negative (Negative); Protein Urine 1+ (Negative); Urine Appearance Cloudy (CLEAR); Urine Color Yellow (Yellow); Urobilinogen Urine Norm (Negative); pH Urine 5 (5-7)
[2022-06-01 09:32] LABS: Bacteria Urine 3+ /hpf; Squamous Epithelial Cell Urine RARE /hpf (0-5); WBC Urine 55-80 /hpf (0-5)
[2022-06-01 09:33] LABS: Mucus Urine 2+ /hpf; Sperm Urine 2+ /hpf
--- NOTE | 2022-06-01 09:33 | PM.CONSULT ---
Providers/Reason For Consult Consulting Physician/Specialty*: CHELITA Elaine MD/cardiology Reason for Consult*: Patient with a cardiac arrest of unknown etiology Requesting Physician: Dr. Cruz Attending Physician: Jean Marie Cruz MD Primary Care Provider: GALO Fajardo History of Present Illness History of Present Illness Ike Herrera is a 51 year old male admitted to the hospital through the emergency room. I came to see this patient in the ICU. The patient apparently is remaining comatose and has a dilated and fixed pupil. I was advised to hold off on the consult at this point Medications/Allergies Home Medications Medication Instructions Recorded Confirmed Last Taken Type Unable to Assess 06/01/22 06/01/22 Unknown History Allergies Allergy/AdvReac Type Severity Reaction Status Date / Time Penicillins Allergy ALGY-Hives Verified 02/14/22 05:46 PFSH Acute PFSH: Medical History (Updated 06/02/22 @ 00:01 by TIFFANY Gilbert) Shoulder pain Surgical History (Updated 06/01/22 @ 15:08 by Jean Marie Cruz MD) History of hernia surgery History of rotator cuff surgery right and left shoulder Hx of shoulder surgery Family History Father Hypertension Social History Second hand smoke exposure: No Smoking risk assessment/counseling performed?: Yes Alcohol intake: never Desire information about alcohol rehabilitation?: No Counseling given: No Substance/Drug Use: never Desire information about substance/drug rehabilitation?: No Counseling given: No Caregiver/support person: No Lives independently: Yes Household members: family Housing: House Marital status: Number of children: 3 Highest education level completed: High School Graduate service: No Current occupational status: disabled Pets and animals: No Vitals/I&O/Wt Last Vital Signs Pulse 0 L 06/01/22 06:37 Resp 24 H 06/01/22 07:00 FiO2 100 06/01/22 07:00 Weight last 48 hrs Weight 215 lb Data 06/01/22 06:45 06/01/22 06:45 Other Labs: Laboratory Last Values WBC 12.0 10^3/uL (4.0-10.0) H 06/01/22 06:45 RBC 4.86 10^6/uL (4.1-5.3) 06/01/22 06:45 Hgb 13.7 g/dL (11.7-16.6) 06/01/22 06:45 Hct 46.0 % (42.0-52.0) 06/01/22 06:45 MCV 94.7 fl (80-94) H 06/01/22 06:45 MCH 28.2 pg (28.0-34.0) 06/01/22 06:45 MCHC 29.8 g/dL (30.0-36.0) L 06/01/22 06:45 RDW 14.5 % (12.1-15.1) 06/01/22 06:45 Plt Count 182 10^3/cmm (130-400) 06/01/22 06:45 MPV 9.9 fL (7.4-10.4) 06/01/22 06:45 Neut % (Auto) 37.4 % 06/01/22 06:45 Lymph % (Auto) 51.3 % 06/01/22 06:45 [place] % (Auto) 5.0 % 06/01/22 06:45 Eos % (Auto) 1.0 % 06/01/22 06:45 Baso % (Auto) 0.4 % 06/01/22 06:45 Neut # (Auto) 4.47 10^3/uL (1.8-7.7) 06/01/22 06:45 Lymph # (Auto) 6.1 10^3/uL (0.8-4.8) H 06/01/22 06:45 [place] # (Auto) 0.6 10^3/uL (0.2-0.9) 06/01/22 06:45 Eos # (Auto) 0.1 10^3/uL (0.0-0.8) 06/01/22 06:45 Baso # (Auto) 0.1 10^3/uL (0.0-0.1) 06/01/22 06:45 Nucleated RBC % (auto) 0.3 % 06/01/22 06:45 Nucleated RBCs # 0.0 /100WBC 06/01/22 06:45 PT 16.00 SECONDS (12.1-14.9) H 06/01/22 06:45 INR 1.23 (0.8-1.2) H 06/01/22 06:45 APTT 54.4 SECONDS (23.9-36.7) H 06/01/22 06:45 Specimen Type Arterial 06/01/22 07:54 Sample Site Artline 06/01/22 07:54 ABG pH 7.18 (7.35-7.45) L* 06/01/22 07:54 ABG pCO2 45.1 mmHg (35-45) H 06/01/22 07:54 ABG pO2 109.0 mmHg (80.0-100.0) H 06/01/22 07:54 ABG HCO3 16.7 mmol/L (22-26) L 06/01/22 07:54 ABG O2 Saturation 97.0 06/01/22 07:54 ABG Base Excess -11.4 mmol/L (-2.0-2.0) L 06/01/22 07:54 Kishor Test Pos 06/01/22 07:54 A-a O2 Gradient 72.1 mmHg (5-10) H 06/01/22 07:54 Hematocrit 37.4 % (42-52) L 06/01/22 07:54 Hgb O2 Saturation 94.7 % (95-100) L 06/01/22 07:54 Carboxyhemoglobin 1.4 %THgb (0.4-20.1) 06/01/22 07:54 Methemoglobin 1.0 % (0.4-1.5) 06/01/22 07:54 Total Hemoglobin 12.2 g/dL (14-18) L 06/01/22 07:54 Sodium 139.0 mmol/L (131-143) 06/01/22 07:54 Potassium 5.1 mmol/L (3.5-5.0) H 06/01/22 07:54 Glucose 418.0 mg/dL (70-115) H 06/01/22 07:54 Ionized Calcium 1.2 mmol/L (1.1-1.4) 06/01/22 07:54 O2 Delivery Device Vent 06/01/22 07:54 O2 Liters/Min 15.0 % 06/01/22 07:00 FiO2 100.0 % 06/01/22 07:54 Tidal Volume 0.55 06/01/22 07:54 PEEP 8.0 cmH20 06/01/22 07:54 [employer] ID Cak 06/01/22 07:54 Sodium 134 mmol/L (136-145) L 06/01/22 06:45 Potassium 3.9 mmol/L (3.5-5.1) 06/01/22 06:45 Chloride 91 mmol/L (98-107) L 06/01/22 06:45 Carbon Dioxide 19 mmol/L (22-29) L 06/01/22 06:45 Anion Gap 27.9 (5-19) H 06/01/22 06:45 BUN 23 mg/dL (6-20) H 06/01/22 06:45 Creatinine 1.6 mg/dL (0.7-1.2) H 06/01/22 06:45 GFR Calculation 45.6 mL/min (90-130) L 06/01/22 06:45 Glucose 342 mg/dL (65-115) H 06/01/22 06:45 Calculated Osmolality 295 mOsm/kg (285-295) 06/01/22 06:45 Calcium 9.1 mg/dL (8.5-10.5) 06/01/22 06:45 Phosphorus 8.9 mg/dL (2.5-4.5) H* 06/01/22 06:45 Magnesium 2.9 mg/dL (1.7-2.3) H 06/01/22 06:45 Total Bilirubin 0.2 mg/dL (0.15-1.2) 06/01/22 06:45 AST 79 U/L (0-40) H 06/01/22 06:45 ALT 61 U/L (0-41) H 06/01/22 06:45 Alkaline Phosphatase 106 U/L (40-130) 06/01/22 06:45 Troponin T Baseline 96 ng/L (0-15) H 06/01/22 06:45 Total Protein 6.8 g/dL (6.6-8.7) 06/01/22 06:45 Albumin 3.7 g/dL (3.5-5.2) 06/01/22 06:45 Globulin 3.1 g/dL (1.3-4.6) 06/01/22 06:45 Urine Color Yellow (Yellow) 06/01/22 08:55 Urine Appearance Cloudy (CLEAR) A 06/01/22 08:55 Urine pH 5 (5-7) 06/01/22 08:55 Ur Specific [place] 1.020 (1.005-1.030) 06/01/22 08:55 Urine Protein 1+ (Negative) H 06/01/22 08:55 Urine Glucose (UA) Norm (Normal) 06/01/22 08:55 Urine Ketones Negative (Negative) 06/01/22 08:55 Urine Blood 2+ (Negative) H 06/01/22 08:55 Urine Nitrate Negative (Negative) 06/01/22 08:55 Urine Bilirubin Neg (Negative) 06/01/22 08:55 Urine Urobilinogen Norm mg/dL (Negative) 06/01/22 08:55 Ur Leukocyte Esterase 2+ (Negative) H 06/01/22 08:55 Urine RBC 5-10 /hpf (0-2) H 06/01/22 08:55 Urine WBC 55-80 /hpf (0-5) H 06/01/22 08:55 Ur Squamous Epith Cells Rare /hpf (0-5) 06/01/22 08:55 Amorphous Sediment Not Reportable 06/01/22 08:55 Urine Bacteria 3+ /hpf (NONE) H 06/01/22 08:55 Urine Mucus 2+ /hpf 06/01/22 08:55 Urine Sperm 2+ /hpf 06/01/22 08:55 Salicylates < 0.3 mg/dL (3-10) L 06/01/22 06:45 Urine Opiates Screen Negative ng/mL (Negative) 06/01/22 08:55 Acetaminophen < 5.0 ug/mL (10-30) L 06/01/22 06:45 Ur Barbiturates Screen Negative ng/mL (Negative) 06/01/22 08:55 Ur Phencyclidine Scrn Negative ng/mL (Negative) 06/01/22 08:55 Ur Amphetamines Screen Positive ng/mL (Negative) H 06/01/22 08:55 U Benzodiazepines Scrn Positive ng/mL (Negative) H 06/01/22 08:55 Urine Cocaine Screen Negative ng/mL (Negative) 06/01/22 08:55 U Marijuana (THC) Screen Positive ng/mL (Negative) H 06/01/22 08:55 Ethyl Alcohol < 10 mg/dL (0-10) 06/01/22 06:45 Micro: Microbiology 06/01/22 08:47 Blood Culture - Preliminary Blood SPECIMEN COLLECTED 06/01/22 08:55 Blood Culture - Preliminary Blood SPECIMEN COLLECTED Coding Level of Care Code Acute Code for Chg Fwd Diagnoses
[2022-06-01 09:34] LABS: Add Urine Culture? Yes
[2022-06-01] MEDS: iohexol 350 mg/mL 500 mL Btl (per mL) IV (09:36)
[2022-06-01 09:57] LABS: Lactic Sepsis W/Reflex 9.1 mmol/L (0.5-2.2); Troponin 5 2HR 3290 ng/L (0-15); Troponin 5 2HR Delta 3194 ABS# (0-10)
[2022-06-01] MEDS: sodium chloride 0.9% 1,000 ML 999 ML IV (10:03)
[2022-06-01] MEDS: sucralfate 1 gm Tablet PO (10:03)
[2022-06-01] MEDS: aspirin 81 mg EC Tablet PO (10:03)
[2022-06-01] MEDS: atorvastatin 40 mg Tablet PO (10:03)
[2022-06-01] MEDS: pantoprazole 40 mg SDV IVP (10:03)
[2022-06-01] MEDS: sodium chloride 0.9% 1,000 ML 125 ML IV (10:04)
[2022-06-01 10:14] LABS: ABG PCO2 34.6 mmHg (35-45); ABG PH Result 7.26 (7.35-7.45); Arterial Blood Gas Hematocrit 38.9 % (42-52); Base Excess ABG -10.5 mmol/L (-2.0-2.0); Blood Gas Operator Identificat CAK; Blood Gas Sample Site ARTLINE; Blood Gas Sample Type Arterial; Blood Gas Tidal Volume 0.55; HCO3 ABG 15.6 mmol/L (22-26); Oxygen Device VENT
[2022-06-01] MEDS: sodium bicarbonate 8.4% 1 mEq/mL 50mL Syr 50 MEQ IVP (10:23)
[2022-06-01] MEDS: EPINEPHrine 2.5 MG in sodium chloride 0.9% 250 ML 109.08 MG IV (10:30)
[2022-06-01 10:47] LABS: Reflex Lactate Order REFLEX LACTIC ORDERD
[2022-06-01 10:57] LABS: D Dimer >= 20.00 ug/mIFEU (0-0.59)
[2022-06-01 10:57] LABS: NT Pro B Type Natriuretic Pept 130 pg/mL (0-125); Procalcitonin 0.17 ng/mL (0-0.5); Thyroid Stimulating Hormone 4.97 uIU/mL (0.27-4.20)
[2022-06-01 10:58] LABS: Cortisol Random 6.02 ug/dL (2.47-19.5)
[2022-06-01] MEDS: ipratropium-albuterol 3 mL Neb INHALATION (11:00)
[2022-06-01 11:09] LABS: Chol HDL Ratio 4.92 mg/dL (1.0-5.00); Cholesterol 177 mg/dL (0-200); HDL Cholesterol 36 mg/dL (60-100); LDL Cholesterol Calculated 97 mg/dL (50-129); LDL HDL Ratio 2.69 RATIO (0.00-3.22); Triglycerides 218 mg/dL (0-150)
[2022-06-01 11:40] LABS: Estmated Average Glucose 120; Hemoglobin A1C 5.8 % (4.0-6.0)
--- NOTE | 2022-06-01 12:00 | PC.NURSE ---
noted seizure activity of upper extremity and notified doctor keppra given noted .. very significcant drop in pressure at this time noted.. notified family
--- NOTE | 2022-06-01 12:30 | PC.NURSE ---
remains critical pressure drops drastic increasing medication at this time nuro status remains unchanged ....
[2022-06-01] MEDS: DOPamine drip 400 MG/250 ML PREMIX 18.29 MG IV (12:36)
[2022-06-01] MEDS: norepinephrine 8 MG in dextrose 5 % 500 ML 152.4 MG IV (12:47)
--- NOTE | 2022-06-01 12:53 | ECG_ITS ---
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 Measurements Intervals [place] Rate: 109 P: 61 NE: 147 QRS: 40 QRSD: 119 T: 20 QT: 332 QTc: 448 Interpretive Statements SINUS TACHYCARDIA INCOMPLETE RIGHT BUNDLE BRANCH BLOCK [90+ ms QRS DURATION, TERMINAL R IN V1/V2, 40+ ms S IN I/aVL/V4/V5/V6] ABNORMAL RHYTHM ECG Compared to ECG 06/01/2022 07:10:44 Incomplete right bundle-branch block now present Right bundle-branch block no longer present Left posterior fascicular block no longer present ST (T wave) deviation no longer present Electronically Signed On 06-01-2022 22:16:18 CDT by Lorie Elaine M.D. [email or web address]
--- NOTE | 2022-06-01 13:00 | PC.NURSE ---
noted decrease status family called back at this time.. multiple medication maxed to keep bloodpressue up .. see code sheet for icu
[2022-06-01] MEDS: sodium bicarbonate 150 MEQ in dextrose 5% 1,000 ML 100 MEQ IV (13:16)
--- NOTE | 2022-06-01 13:50 | PC.NURSE ---
family here aware of status ... talked with doctor at length .. co keep comfort care at this time
[2022-06-01 13:53] LABS: Lactic Acid level (Lactate) 5.3 mmol/L (0.5-2.2)
--- NOTE | 2022-06-01 14:00 | PC.NURSE ---
asystole noted family at bedside no cpr no code at this time... family at bedside... [facility] called and saving site called not jesusiate at this time. to release to [facility] post mortem care done
--- NOTE | 2022-06-01 14:20 | PC.NURSE ---
Addendum entered by EVIE Thomas RN 06/01/22 14:30: time of note should be 1030 Original Note: recieved from er on vent on levophed gtt and on epi gtt at this time pupils dialated no response at this time .. skin mottled over entire body , guzman with scant urine output noted cardiac cath lab radiology technologist stach at this time .. on vent at this time temp noted to be 92.7 warming blanket on pt at this time... family aware of status at this time increasing gtt as pressure decreased
[2022-06-01 15:01] LABS: Troponin 5 6HR > 10000 ng/L (0-15)
--- NOTE | 2022-06-01 15:07 | P.HP_ITS ---
Providers/Chief Complaint Admitting Physician: Jean Marie Cruz MD Primary Care Provider: Ned Nguyen, [employer] [employer]IST[facility] Chief Complaint: OD History of Present Illness Ike Herrera is a 51 year old male with a past medical history of COPD, story of opiate use, history of methamphetamine positivity, history of benzodiazepine positivity, he had a ER visit in January 2022 where he admitted to using injecting Dilaudid, he has multiple track garzon were found. Currently patient is intubated, history was provided by family members at bedside, ER physician, according to family members, he has not been feeling well for the last day, no reported chest pain, no reported shortness of breath, no recent surgeries at roughly 530 this morning, he went to the bathroom, and family suddenly heard a bang, patient was found unresponsive in the bathroom, no CPR was initiated, family thought he might of overdosed, so they gave him Narcan, they also tried to put him in the shower, when EMS arrived roughly 10 minutes later, patient was found to have no pulse, CPR was started, rhythm was PEA, marla mckinney was intubated, received roughly 7 doses of 1 mg of epinephrine, also 2 mg of Narcan, he had ROSC for roughly 1 minute, however lost his pulse again and CPR was resumed via Pietro device. On initial arrival, patient was in PEA to the emergency room, receiving CPR, ROSC was achieved, he is placed on norepinephrine and epinephrine drip. During my examination, currently patient intubated, sedat ed, on norepinephrine drip, epinephrine drip, had a femoral line in place, an arterial line in place, nursing staff at bedside, spoke to ER physician. I reviewed patient's code sheet, he had 2 defibrillations, for V-fib, V. tach, had roughly 12 minutes of CPR, received roughly 4 mg of epinephrine, 300 mg of amiodarone currently patient is hypothermic, pupils are fixed and dilated, nonresponsive to light, he has not received any sedation, he does not withdraw from pain, does not waking up, does not respond to sternal rub, has no pupillary reflex, has no corneal reflex, Babinski's upward going bilaterally, patient was taken to CAT scan and had imaging, no findings of pulmonary embolism, I had extensive discussion with cardiology, bedside echocardiogram was done, EF of 56%, had some abnormal septal wall motion. My concern immediately was for an acute cardiac event resulting in cardiac arrest. Certainly drug overdose is a possibility given that his urine was positive for methamphetamines, benzodiazepines, marijuana. Possibly drug overdose, resulting in cardiac arrhythmia versus card iac arrest. I had extensive meeting with patient's family early in the morning in the emergency room -I advised family that patient is in metabolic acidosis and lactic acidosis -He is in shock on multiple pressors -He is in acute renal failure, acute liver failure -Has multiorgan failure respiratory failure is on 60% FiO2 -My immediate concern is his neurologic status, he does not have a coronary reflex, nor does have a pupillary reflex, does not withdraw from pain, pupils are fixed and dilated he has not not received any sedation I am worried that he sustained significant neurologic injury, so I think the likelihood of meaningful recovery is fairly unlikely but we can continue interventions -I spoke to the family I think the etiology behind this is likely drug overdose with a mixture of methamphetamines, benzodiazepines, marijuana possibly resulting in a cardiac event versus cardiac arrhythmia. The other possibility is that he could have had a cardiac event related to his coronary arteries. -Nonetheless the cause of his cardiac arrest is still under investigation the question is that will he survive to even consider a coronary angiogram, this is yet to be determined -But as he was down for roughly 10 minutes before ambulance personnel could arrive, that is roughly 10 minutes of lack of blood flow to the brain and then he received CPR with loss of pulse a couple of times, CPR here, that is also significant concerns for lack of blood flow to his brain, I am worried that he s ustained significant neurologic injury, that he might not have any meaningful recovery, and might not respond, might remain on life-sustaining measures -Family tells me that it was never his wish to remain on life-sustaining measures, he would not want to live like this his tells me, but she wants to continue our interventions, -If he goes into cardiac arrest, she wants us to continue to perform CPR, if he needs dialysis she wants us to go out and proceed with dialysis -Patient then was moved to CT scan had extensive imaging -I reviewed imaging, CT of the head shows cerebral edema, head of bed was elevated I again saw family at bedside -During my examination he does have some mild seizure activity around his mouth, has some tremors seizures around his mouth, that are potentially seizure-like activity abdomen start him on Keppra -I advised family that I am quite worried about significant neurologic injury, his CT scan shows cerebral edema, he should ideally be in a tertiary level c enter, on continuous EEG monitoring, and should be at a center that has TTM available, we could certainly consider transfer once he is more stable however currently he is on 2 pressors and unstable for transfer -I am also worried that with his significant cerebral edema he might develop worsening brain swelling or regarding possible craniotomy, intracranial pressure monitoring, neurosurgery and neurology evaluation which we do not have at our hospital and over the weekend -Family wants us to continue intervention see if he would stabilize -Patient's currently is on 60% FiO2 -I also have him on antibiotics for possible aspiration -CT does show several rib fracture sternal fractures no giving evidence of pneumothorax -Patient's troponins are also elevated, family was notified, over 3000, likely from cardiac event and/or drug overdose and or CPR currently too unstable for coronary angiography, will continue to monitor although his echocardiogram showed reasonable ejection fraction -Reexamined again, off sedation no corneal reflex, no pupillary reflex, does not withdraw from pain, no response to sternal rub, Babinski's bilateral upward going, no cough reflex, no gag reflex -Again I advised patient's family at bedside, that I think that he sustained significant neurologic injury from his cardiac arrest and being down for so long I think the likelihood of him recovering neurologically is very unlikely I think he would likely be dependent on life-sustaining measures like a tracheostomy and a PEG tube, and family tells me that this is not what his wishes are but they want to continue interventions and see how he does over the next few hours -As the day progressed roughly at 1 PM or so patient started develop hypotension, maps less than 65, placed on dopamine, given several pushes of bicarb and epinephrine at bedside, I was present -Patient is developing severe metabolic acidosis, lactic acidosis, was started on a bicarbonate drip -Also has minimal urine output developing acute renal failure he might likely need dialysis -Was also given calcium for possible hyperkalemia -Patient despite maximum pressor therapy and maximum doses of epinephrine, was up to 50 of Levophed, maximum dose of dopamine, remained hypotensive tensive, maps less than 65, again given bicarbonate pushes, epinephrine pushes, placed on dobutamine -Again reexamined, family was called back and as I feel that his is imminent, -Meanwhile patient was placed on 4 pressor therapy, on maximum doses, on up to 50 of Levophed, dobutamine drip receiving several fluid boluses, -Again reexamined at bedside, he is mottled all the way up to the level of the abdomen, -He is up to 100% FiO2 -On examination no corneal reflex, no pupillary reflex, no no responses, does not withdraw from pain, no gag reflex, -Patient's family was over at bedside, currently he is on maximum pressor therapy, maximal medical therapy, his maps are still less than 65 -I advised family that I do not believe that his condition currently survivable currently he is on maximal medical therapy -In terms of his neurologic status I do not think he is going to have any meaningful recovery, he has no significant neurologic responses, no coronary reflex no gag reflex, no pupillary reflex he does not withdraw from pain, he is not on any sedation nor has he received any sedation -He was down for roughly 10 minutes before CPR was initiated, then received CPR on route, and roughly received 13 minutes of CPR here, thus there was a significant amount of time there was poor cerebral perfusion, and lack of blood flow to the brain -His CT scan shows severe cerebral edema, he is possibly having seizure-like episode receiving Keppra -All indicators of poor prognostic indicators -Currently he is in multiorgan failure, he has minimal urine output roughly 75 cc -Up to 100% FiO2 -Currently in shock, despite multiple pressor therapy -I discussed options available, family wants to just make him comfortable and allow him to pass away comfortably -His at bedside, agreed to proceed with comfort care -Discussed risk and benefits of comfort care, they voiced understanding, all questions answered, agreed to proceed with comfort care -Place patient on comfort care -Time of 1400 06/01/2022 -Critical care time spent roughly 4 hours -Spoke to cardiology -Spoke to ER physician -Spoke to nursing staff -Spoke to patient's family Review of Systems General: Reports: ROS unobtainable due to endotracheal tube, ROS unobtainable due to medical condition and ROS unobtainable due to mental status Medications/Allergies Home Medications Medication Instructions Recorded Confirmed Last Taken Type Unable to Assess 06/01/22 06/01/22 Unknown History Allergies Allergy/AdvReac Type Severity Reaction Status Date / Time Penicillins Allergy ALGY-Hives Verified 02/14/22 05:46 PFSH Acute PFSH: Medical History (Updated 06/01/22 @ 15:40 by Jean Marie Cruz MD) Shoulder pain Surgical History (Updated 06/01/22 @ 15:08 by Jean Marie Cruz MD) History of hernia surgery History of rotator cuff surgery right and left shoulder Hx of shoulder surgery Family History Father Hypertension Social History Second hand smoke exposure: No Smoking risk assessment/counseling performed?: Yes Alcohol intake: never Desire information about alcohol rehabilitation?: No Counseling given: No Desire information about substance/drug rehabilitation?: No Counseling given: No Caregiver/support person: No Lives independently: Yes Household members: family Housing: House Marital status: Number of children: 3 Highest education level completed: High School Graduate service: No Current occupational status: disabled Pets and animals: No Vitals/I&O/Wt Last Vital Signs Temp 94.2 F L 06/01/22 09:56 Pulse 102 H 06/01/22 14:41 Resp 16 06/01/22 13:07 BP 90/55 06/01/22 13:15 Pulse Ox 93 06/01/22 13:15 O2 Del Method 06/01/22 11:03 FiO2 100 06/01/22 13:07 06/01/22 06/01/22 06/01/22 06:59 14:59 22:59 Intake Total 1459.778 / 1459.778 Balance 1459.778 / 1459.778 Weight last 48 hrs Weight 97.522 kg Physical Exam Const: COMMON NORMALS: no acute distress OTHER: Intubated, on mechanical ventilation HENMT: COMMON NORMALS: normocephalic Eye: OTHER: Fixed, dilated, nonresponsive to light, does not track, no corneal reflex, no pupillary reflex Neck/C-Spine: COMMON NORMALS: full ROM and no lymphadenopathy Lymph: LYMPHATIC: no lymphadenopathy noted Chest: COMMONS NORMALS: normal inspection of the chest OTHER: Several tattoos present on chest Resp: COMMON NORMALS: normal respiratory effort, No retractions, No use of accessory muscles and clear to auscultation bilaterally AUSCULTATION: clear to auscultation bilaterally Cardio: COMMON NORMALS: regular rate, regular rhythm, S1 normal heart sound present and S2 normal heart sound present RATE: regular rate RHYTHM: regular rhythm HEART SOUNDS: S1 normal heart sound present and S2 normal heart sound present GI: COMMON NORMALS: Normal to inspection, nondistended, normoactive bowel sounds present, Soft to palpation and non-tender Extremity: COMMON NORMALS: no pedal edema Urinary Catheter Management: Panda: Cath Placed During This Visit: no Sepsis: Is patient septic: Yes Focused sepsis exam: Has mottling up to the level of the abdomen Data 06/01/22 06:45 06/01/22 06:45 Micro: Microbiology 06/01/22 10:00 Gram Stain - Final Sputum - Endotracheal Tube Aspirate 06/01/22 08:47 Blood Culture - Preliminary Blood SPECIMEN COLLECTED 06/01/22 08:55 Blood Culture - Preliminary Blood SPECIMEN COLLECTED A&P Assessment and plan (1) Cardiac arrest: (2) Leukocytosis: (3) Hypercapnic acidosis: (4) Acute renal failure: (5) Acute liver failure: (6) DIC (disseminated intravascular coagulation): (7) Metabolic acidosis: (8) Lactic acidosis: (9) Acute respiratory failure with hypoxia: (10) NSTEMI (non-ST elevated myocardial infarction): (11) Shock: (12) Drug overdose: (13) Methamphetamine abuse: (14) Benzodiazepine abuse: (15) Cerebral edema: (16) Neurologic abnormality: (17) Goals of care, counseling/discussion: Attestations Medical Necessity Statement*: Patient requires hospitalization for shock, acute respiratory failure, drug overdose, lactic acidosis, metabolic acidosis, multiple pressors, multiorgan failure, cardiac arrest, hypothermia, cerebral edema, Coding Level of Care Code Critical Care >/= 30 minutes Critical care time (in minutes): 240 The high probability of a clinically significant, sudden or life threatening deterioration, as referenced in this documentation, required my full and direct attention, intervention and personal management. The critical care time shown is in addition to time spent performing any reported separately billable procedures and includes the following: [x] Data and vital sign review and interpretation [x ] Patient assessment, examination and intervention [x] Medication orders and management [x] Patient/Family updates as able [x] Care Coordination and Documentation. Diagnoses Cardiac arrest I46.9 Leukocytosis D72.829 Hypercapnic acidosis E87.29 Acute renal failure N17.9 Acute liver failure K72.00 DIC (disseminated intravascular coagulation) D65 Metabolic acidosis E87.20 Lactic acidosis E87.20 Acute respiratory failure with hypoxia J96.01 NSTEMI (non-ST elevated myocardial infarction) I21.4 Shock R57.9 Drug overdose T50.901A Methamphetamine abuse F15.10 Benzodiazepine abuse F13.10 Cerebral edema G93.6 Neurologic abnormality R29.818 Goals of care, counseling/discussion Z71.89
--- NOTE | 2022-06-01 15:40 | P.DES_ITS ---
Discharge Providers DDS Date of Admission: 06/01/22 08:46 Date Summary Completed: 06/01/22 Attending Provider at Admission: Jean Marie Cruz MD Attending Provider at Discharge: Jean Marie Cruz MD Primary Care Provider: GALO Fajardo Diagnoses Hospital Diagnoses (1) Cardiac arrest: (2) Leukocytosis: (3) Hypercapnic acidosis: (4) Acute renal failure: (5) Acute liver failure: (6) DIC (disseminated intravascular coagulation): (7) Metabolic acidosis: (8) Lactic acidosis: (9) Acute respiratory failure with hypoxia: (10) NSTEMI (non-ST elevated myocardial infarction): (11) Shock: (12) Drug overdose: (13) Methamphetamine abuse: (14) Benzodiazepine abuse: (15) Cerebral edema: (16) Neurologic abnormality: (17) Goals of care, counseling/discussion: Reason for Visit Reason for Visit OD Summary Summary Summary: This is a 51-year-old male who presents to [facility] for cardiac arrest Ike Herrera is a 51 year old male with a past medical history of COPD, story of opiate use, history of methamphetamine positivity, history of benzodiazepine positivity, he had a ER visit in January 2022 where he admitted to using injecting Dilaudid, he has multiple track garzon were found.? Currently patient is intubated, history was provided by family members at bedside, ER physician, according to family members, he has not been feeling well for the last day, no reported chest pain, no reported shortness of breath, no recent surgeries at roughly 530 this morning, he went to the bathroom, and family suddenly heard a bang, patient was found unresponsive in the bathroom, no CPR was initiated, family thought he might of overdosed, so they gave him Narcan, they also tried to put him in the shower, when EMS arrived roughly 10 minutes later, patient was found to have no pulse, CPR was started, rhythm was PEA, patient was intubated, received roughly 7 doses of 1 mg of epinephrine, also 2 mg of Narcan, he had ROSC for roughly 1 minute, however lost his pulse again and CPR was resumed via Pietro device.? On initial arrival, patient was in PEA to the emergency room, receiving CPR, ROSC was achieved, he is placed on norepinephrine and epinephrine drip.? During my examination, currently patient intubated, sedated, on norepinephrine drip, epinephrine drip, had a femoral line in place, an arterial line in place, nursing staff at bedside, spoke to ER physician.? I reviewed patient's code sheet, he had 2 defibrillations, for V-fib, V. tach, had roughly 12 minutes of CPR, received roughly 4 mg of epinephrine, 300 mg of amiodarone ?currently patient is hypothermic, pupils are fixed and dilated, nonresponsive to light, he has not received any sedation, he does not withdraw from pain, does not waking up, does not respond to sternal rub, has no pupillary reflex, has no corneal reflex, Babinski's upward going bilaterally, patient was taken to CAT scan and had imaging, no findings of pulmonary embolism, I had extensive discussion with cardiology, bedside echocardiogram was done, EF of 56%, had some abnormal septal wall motion.? My concern immediately was for an acute cardiac event resulting in cardiac arrest.? Certainly drug overdose is a possibility given that his urine was positive for methamphetamines, benzodiazepines, marijuana.? Possibly drug overdose, resulting in cardiac arrhythmia versus cardiac arrest.? I had extensive meeting with patient's family early in the morning in the emergency room -I advised family that patient is in metabolic acidosis and lactic acidosis -He is in shock on multiple pressors -He is in acute renal failure, acute liver failure -Has multiorgan failure respiratory failure is on 60% FiO2 -My immediate concern is his neurologic status, he does not have a coronary reflex, nor does have a pupillary reflex, does not withdraw from pain, pupils are fixed and dilated he has not not received any sedation I am worried that he sustained significant neurologic injury, so I think the likelihood of meaningful recovery is fairly unlikely but we can continue interventions -I spoke to the family I think the etiology behind this is likely drug overdose with a mixture of methamphetamines, benzodiazepines, marijuana possibly resulting in a cardiac event versus cardiac arrhythmia.? The other possibility is that he could have had a cardiac event related to his coronary arteries. -Nonetheless the cause of his cardiac arrest is still under investigation the question is that will he survive to even consider a coronary angiogram, this is yet to be determined -But as he was down for roughly 10 minutes before ambulance personnel could arrive, that is roughly 10 minutes of lack of blood flow to the brain and then he received CPR with loss of pulse a couple of times, CPR here, that is also significant concerns for lack of blood flow to his brain, I am worried that he sustained significant neurologic injury, that he might not have any meaningful r ecovery, and might not respond, might remain on life-sustaining measures -Family tells me that it was never his wish to remain on life-sustaining measures, he would not want to live like this his tells me, but she wants to continue our interventions, -If he goes into cardiac arrest, she wants us to continue to perform CPR, if he needs dialysis she wants us to go out and proceed with dialysis -Patient then was moved to CT scan had extensive imaging -I reviewed imaging, CT of the head shows cerebral edema, head of bed was elevated I again saw family at bedside -During my examination he does have some mild seizure activity around his mouth, has some tremors seizures around his mouth, that are potentially seizure-like activity abdomen start him on Keppra -I advised family that I am quite worried about significant neurologic injury, his CT scan shows cerebral edema, he should ideally be in a tertiary level center, on continuous EEG monitoring, and should be at a center that has [facility], we could certainly consider transfer once he is more stable however currently he is on 2 pressors and unstable for transfer -I am also worried that with his significant cerebral edema he might develop worsening brain swelling or regarding possible craniotomy, intracranial pressure monitoring, neurosurgery and neurology evaluation which we do not have at our hospital and over the weekend -Family wants us to continue intervention see if he would stabilize -Patient's currently is on 60% FiO2 -I also have him on antibiotics for possible aspiration -CT does show several rib fracture sternal fractures no giving evidence of pneumothorax -Patient's troponins are also elevated, family was notified, over 3000, likely from cardiac event and/or drug overdose and or CPR currently too unstable for coronary angiography, will continue to monitor although his echocardiogram showed reasonable ejection fraction -Reexamined again, off sedation no corneal reflex, no pupillary reflex, does not withdraw from pain, no response to sternal rub, Babinski's bilateral upward going, no cough reflex, no gag reflex -Again I advised patient's family at bedside, that I think that he sustained significant neurologic injury from his cardiac arrest and being down for so long I think the likelihood of him recovering neurologically is very unlikely I think he would likely be dependent on life-sustaining measures like a tracheostomy and a PEG tube, and family tells me that this is not what his wishes are but they want to continue interventions and see how he does over the next few hours -As the day progressed roughly at 1 PM or so patient started develop hypotension, maps less than 65, placed on dopamine, given several pushes of bicarb and epinephrine at bedside, I was present -Patient is developing severe metabolic acidosis, lactic acidosis, was started on a bicarbonate drip -Also has minimal urine output developing acute renal failure he might likely need dialysis -Was also given calcium for possible hyperkalemia -Patient despite maximum pressor therapy and maximum doses of epinephrine, was up to 50 of Levophed, maximum dose of dopamine, remained hypotensive tensive, maps less than 65, again given bicarbonate pushes, epinephrine pushes, placed on dobutamine -Again reexamined, family was called back and as I feel that his is imminent, -Meanwhile patient was placed on 4 pressor therapy, on maximum doses, on up to 50 of Levophed, dobutamine drip receiving several fluid boluses, -Again reexamined at bedside, he is mottled all the way up to the level of the abdomen, -He is up to 100% FiO2 -On examination no corneal reflex, no pupillary reflex, no no responses, does not withdraw from pain, no gag reflex, -Patient's family was over at bedside, currently he is on maximum pressor th erapy, maximal medical therapy, his maps are still less than 65 -I advised family that I do not believe that his condition currently survivable currently he is on maximal medical therapy -In terms of his neurologic status I do not think he is going to have any meaningful recovery, he has no significant neurologic responses, no coronary reflex no gag reflex, no pupillary reflex he does not withdraw from pain, he is not on any sedation nor has he received any sedation -He was down for roughly 10 minutes before CPR was initiated, then received CPR on route, and roughly received 13 minutes of CPR here, thus there was a significant amount of time there was poor cerebral perfusion, and lack of blood flow to the brain -His CT scan shows severe cerebral edema, he is possibly having seizure-like ep isode receiving Keppra -All indicators of poor prognostic indicators -Currently he is in multiorgan failure, he has minimal urine output roughly 75 cc -Up to 100% FiO2 -Currently in shock, despite multiple pressor therapy -I discussed options available, family wants to just make him comfortable and allow him to pass away comfortably -His at bedside, agreed to proceed with comfort care -Discussed risk and benefits of comfort care, they voiced understanding, all questions answered, agreed to proceed with comfort care -Place patient on comfort care -Time of 1400 06/01/2022 -Critical care time spent roughly 4 hours -Spoke to cardiology -Spoke to ER physician -Spoke to nursing staff -Spoke to patient's family Additional Data Confirmation of as documented by pronouncing clinician: no pulse, no respirations, no heart sounds and pupils fixed and dilated Family: at bedside Additional persons at bedside: nursing staff Attending/PCP notified?: I am attending Was code activated?: No Autopsy requested?: No Advance directives?: No Discharge Plan Discharge Patient Disposition: Home Condition: Stable Prescriptions: No Action Unable to Assess Referrals: Ned Nguyen FNP-C [Primary Care Provider] - Patient Instructions: Opioid Safety DS Attestations Time Spent in /Discharge Care*: greater than 30 min Quality - AMI: AMI present?: No Quality - Stroke: CVA present?: No Symptom Onset Unknown: No Quality - VTE: VTE present?: No Deep Vein Thrombosis/Pulmonary Embolism Present on Admission: No Coding Level of Care Code Critical Care >/= 30 minutes Critical care time (in minutes): 30 The high probability of a clinically significant, sudden or life threatening deterioration, as referenced in this documentation, required my full and direct attention, intervention and personal management. The critical care time shown is in addition to time spent performing any reported separately billable procedures and includes the following: [x] Data and vital sign review and interpretation [x ] Patient assessment, examination and intervention [x] Medication orders and management [x] Patient/Family updates as able [x] Care Coordination and Documentation. Diagnoses Cardiac arrest I46.9 Leukocytosis D72.829 Hypercapnic acidosis E87.29 Acute renal failure N17.9 Acute liver failure K72.00 DIC (disseminated intravascular coagulation) D65 Metabolic acidosis E87.20 Lactic acidosis E87.20 Acute respiratory failure with hypoxia J96.01 NSTEMI (non-ST elevated myocardial infarction) I21.4 Shock R57.9 Drug overdose T50.901A Methamphetamine abuse F15.10 Benzodiazepine abuse F13.10 Cerebral edema G93.6 Neurologic abnormality R29.818 Goals of care, counseling/discussion Z71.89
--- NOTE | 2022-06-01 16:08 | PC.NURSE ---
[facility] to [facility]
[2022-06-02 00:06] LABS: Glucose Point of Care 341 mg/dL (70-110)
== END 2022-06-01 14:00 | disposition expired ==
LOC: ER 08:05 → ICU 08:58
PROVIDERS: Admitting Provider Family Medicine; Emergency Provider Emergency Medicine; PCP Nurse Practitioner; Visit Provider Family Medicine
DX: I46.9 Cardiac arrest, cause unspecified (principal); D65 Disseminated intravascular coagulation [defibrination syndrome]; I21.4 Non-ST elevation (NSTEMI) myocardial infarction; J96.01 Acute respiratory failure with hypoxia; K72.00 Acute and subacute hepatic failure without coma; G93.6 Cerebral edema; N17.9 Acute kidney failure, unspecified; E87.20 Acidosis, unspecified; E87.29 Other acidosis; M96.A1 Fracture of sternum associated with chest compression and cardiopulmonary resuscitation; M96.A3 Multiple fractures of ribs associated with chest compression and cardiopulmonary resuscitation; T43.651A Poisoning by methamphetamines accidental (unintentional), initial encounter; T50.991A Poisoning by other drugs, medicaments and biological substances, accidental (unintentional), initial encounter; I95.9 Hypotension, unspecified; D72.829 Elevated white blood cell count, unspecified; F15.10 Other stimulant abuse, uncomplicated; F13.10 Sedative, hypnotic or anxiolytic abuse, uncomplicated; R29.818 Other symptoms and signs involving the nervous system; J44.9 Chronic obstructive pulmonary disease, unspecified; R56.9 Unspecified convulsions; R68.0 Hypothermia, not associated with low environmental temperature; R74.01 Elevation of levels of liver transaminase levels
CPT/HCPCS: 36415; 36416; 36556; 36600; 36620; 51702; 70450; 71045; 71250; 71275; 72125; 74176; 80051; 80053; 80061; 80306; 80307; 81001; 82330; 82533; 82803; 82805; 82962; 83036; 83605; 83735; 83880; 84100; 84145; 84443; 84484; 85025; 85378; 85610; 85730; 87040; 87070; 87077; 87086; 87186; 87205; 93005; 93306; 94002; 94640; 94799; 96365; 96366; 96367; 96376; 99291; 99292; C9113; J0171; J0282; J0461; J1265; J1953; J3490; J7030; J7050; J7060; J7070; Q9967